=== PATIENT | female | born 1980 | race Caucasian/White ===

== ENCOUNTER 2019-05-28 12:08 | Outpatient (CLI) | payer OTHER, SELFPAY ==
--- NOTE | ~2019-05-28 | US_ITS ---
EXAMINATION: US venous doppler LE RT EXAM DATE: 05/28/2019 12:55 INDICATION: Right maxillary pain. TECHNIQUE: Multiple grayscale, color flow and Doppler images of the right lower extremity deep venous system were obtained and reviewed. There is no prior study for comparison. FINDINGS: The right common femoral, femoral and profunda veins demonstrate normal color flow, respira tory variation, augmentation and compressibility. Compressibility, color flow confirmed within the r ight popliteal, posterior tibial, peroneal, and greater saphenous veins. IMPRESSION: 1. No right lower extremity deep venous thrombosis. Reviewed, dictated and finalized at location B. [employer] OPERATOR
== END 2019-05-28 12:09 | disposition home or self-care (01) ==
PROVIDERS: PCP Family Medicine; Visit Provider Obstetrics & Gynecology
DX: M79.661 Pain in right lower leg (principal)
CPT/HCPCS: 93971

== ENCOUNTER 2020-10-06 09:49 | Emergency (ER) | payer OTHER, SELFPAY ==
[2020-10-06 09:57] VITALS: BP 138/78; PULSE 80; RESP 16; TEMP 35.8; O2SAT 100
--- NOTE | 2020-10-06 10:06 | ED.GENADULT ---
HPI - General Adult General Chief complaint: Urogenital-Female Stated complaint: uti Time Seen by Provider: 10/06/20 10:00 Source: patient and RN notes reviewed Mode of arrival: ambulatory Limitations: no limitations History of Present Illness HPI narrative: 40-year-old female presents with urinary complaints for the past 4 days. ?Angeline reports increasing symptoms throughout the past 4 days. ?Dysuria consists of burning, frequency, and urgency.? Increase water intake and cranberry juice without relief. ?Denies fever. ?No significant pelvic pain. ?No vaginal discharge.? No concerns for STDs.? Exacerbating factors urinating.? Denies douching.? Denies hematuria or vaginal bleeding.? LMP 09/27/2020 ended on?10/02/2020.? No flank pain.? Denies nausea, vomiting, and abdominal pain.? Tolerating liquids well. Remains active. ?The patient reports she was diagnosed with COVID-19 in February,?2019. ?The patient reports she is not waiting for the results of a COVID-19 lab test. ?The patient reports she does not have chills, weakness, or fatigue. ?The patient reports she does not have a new or worsening cough or shortness of breath.? Denies chest pain. The patient reports she does not have any rhinorrhea, congestion, sore throat, loss of taste or smell, and diarrhea.? Denies recent traveling. ?Denies concerns for COVID-19 or exposures being home with limited outdoor exposure. ?At this time, the patient is not suspected of having COVID-19. Some parts of this dictation were generated by voice recognition software and may contain typographical and/or grammatical inaccuracies. Related Data Allergies Allergy/AdvReac Type Severity Reaction Status Date / Time No Known Allergies Allergy Unverified 10/06/20 09:54 Review of Systems Review of Systems: Narrative: CONSTITUTIONAL: Denies fever, chills, sweats. EYES: Denies visual changes, redness, discharge. ENT: Denies rhinorrhea, congestion, sore throat, otalgia. CARDIOVASCULAR: Denies chest pain, palpitations, edema. RESPIRATORY: Denies dyspnea, wheezing, cough. GASTROINTESTINAL: Denies abdominal pain, nausea, vomiting, diarrhea. GENITOURINARY: Complains of dysuria (burning, frequency, and urgency). Denies hematuria, abnormal discharge. SKIN: Denies rash or itching. MUSCULOSKELETAL: Denies acute back pain, joint pain, or myalgia. NEUROLOGIC: Denies numbness or focal weakness. PSYCHIATRIC: Denies anxiety or depression. All systems reviewed & are unremarkable except as noted in HPI and below. [facility] Past Medical History Medical History (Updated 10/07/20 @ 00:00 by Taiwo Venegas) delivery delivered Mother currently breast-feeding Surgical History Surgical History Previous section Family History Family History (Updated 10/06/20 @ 11:02 by BETTINA Finch) Father Family history of cardiovascular disease Hypertension Mother Hypertension Grandparent Diabetes mellitus Social History Social History (Updated 10/06/20 @ 11:03 by BETTINA Finch) Smoking status: Never smoker Tobacco type: cigarettes Second hand tobacco smoke exposure: No Alcohol intake: never Substance use: never Living arrangements: with family Occupation/Education: unemployed Gender identity (if verbalized by the patient): Female Sexual Orientation (if Verbalized by the Patient): Straight or Heterosexual Spiritual care concerns: No Comments At time of signature, agree with the nurse past medical, surgical, social, and family history.? There is no relevant family history pertinent to the presenting complaint. Exam Narrative: Exam Narrative: GENERAL: This is a well-nourished, well-developed patient, in no apparent distress.? Talks in full sentences and ambulates with steady gait without dyspnea. HEAD: Normocephalic, atraumatic. EYES: PERRL. Sclera clear/white. Vision is grossly intact. CARDIOVASCULAR: Regular rate
== END 2020-10-06 10:19 | disposition home or self-care (01) ==
PROVIDERS: Emergency Provider Nurse Practitioner Family
DX: R30.0 Dysuria (principal)
CPT/HCPCS: 81003; 99213; G0463

== ENCOUNTER 2020-12-16 08:44 | Emergency (ER) | payer OTHER, SELFPAY ==
[2020-12-16 08:55] VITALS: BP 108/62; PULSE 72; RESP 16; TEMP 36.6; O2SAT 100
--- NOTE | 2020-12-16 09:02 | ED.GENADULT ---
HPI - General Adult General Chief complaint: Urogenital-Female Stated complaint: uti Time Seen by Provider: 12/16/20 09:03 Source: patient and RN notes reviewed Mode of arrival: ambulatory Limitations: no limitations History of Present Illness HPI narrative: 40-year-old female presents with urinary complaints for the past 1.5 weeks. Angeline reports increasing frequency and pressure with urination over the last 3-4 days. Increased water intake and cranberry juice without relief. Dysuria consists of pain, frequency, and urgency. Denies fever. ?No significant pelvic pain. ?No vaginal discharge.? No concerns for STDs. ?Exacerbating factors urinating.? Denies hematuria or vaginal bleeding. No flank pain. ?Denies nausea, vomiting, and abdominal pain.? Tolerating liquids well.? Remains active. ?The patient reports she was diagnosed with COVID-19 in February 2020. The patient reports she is not waiting for the results of a COVID-19 lab test. ?The patient reports he does not have chills, weakness, or fatigue. ?The patient reports he does not have a new or worsening cough or shortness of breath. ?Denies chest pain. ?The patient reports he does not have any rhinorrhea, congestion, loss of taste or smell, sore throat, and diarrhea. ?Denies recent traveling. Denies concerns for COVID-19 or exposures. ?At this time, the patient is not suspected of having COVID-19. ? Some parts of this dictation were generated by voice recognition software and may contain typographical and/or grammatical inaccuracies. Related Data Allergies Allergy/AdvReac Type Severity Reaction Status Date / Time No Known Allergies Allergy Unverified 12/16/20 08:49 Review of Systems Review of Systems: CONSTITUTIONAL: Denies fever, chills, sweats. EYES: Denies visual changes, redness, discharge. ENT: Denies rhinorrhea, congestion, sore throat, otalgia. CARDIOVASCULAR: Denies chest pain, palpitations, edema. RESPIRATORY: Denies dyspnea, wheezing, cough. GASTROINTESTINAL: Denies abdominal pain, nausea, vomiting, diarrhea. GENITOURINARY: Complains of dysuria (pain, frequency, and urgency). Denies hematuria, abnormal discharge. SKIN: Denies rash or itching. MUSCULOSKELETAL: Denies acute back pain, joint pain, or myalgia. NEUROLOGIC: Denies numbness or focal weakness. PSYCHIATRIC: Denies anxiety or depression. All systems reviewed & are unremarkable except as noted in HPI and below. [facility] Past Medical History Medical History (Updated 12/16/20 @ 10:32 by BETTINA Finch) delivery delivered COVID-19 02/2020 Dizziness Heartburn Mother currently breast-feeding Palpitations Scarlet fever Surgical History Surgical History Previous section Family History Family History Father Family history of cardiovascular disease Hypertension Diabetes mellitus Mother Hypertension Disorder of thyroid Grandparent Diabetes mellitus Social History Social History Smoking status: Never smoker Tobacco type: cigarettes Second hand tobacco smoke exposure: No Alcohol intake: never Substance use: never Gender identity (if verbalized by the patient): Female Spiritual care concerns: No Comments At time of signature, agree with the nurse past medical, surgical, social, and family history.? There is no relevant family history pertinent to the presenting complaint. Exam Narrative: GENERAL: This is a well-nourished, well-developed patient, in no apparent distress.? Talks in full sentences and ambulates with steady gait without dyspnea. HEAD: Normocephalic, atraumatic. EYES: PERRL. Sclera clear/white. Vision is grossly intact. CARDIOVASCULAR: Regular rate and rhythm without murmurs, gallops, or rubs. RESPIRATORY: Clear to auscultation. Breath sounds equal bilaterally. No whee
== END 2020-12-16 09:27 | disposition home or self-care (01) ==
PROVIDERS: Emergency Provider Nurse Practitioner Family; PCP Internal Medicine
DX: R30.0 Dysuria (principal); R12 Heartburn; Z86.16 Personal history of COVID-19
CPT/HCPCS: 81003; 87077; 87086; 87088; 87186; 99213; G0463

== ENCOUNTER 2022-07-28 02:11 | Emergency (ER) | payer OTHER, SELFPAY ==
[2022-07-28] VITALS (8 sets, daily range): BP systolic 118–166; BP diastolic 74–89; PULSE 79–117; RESP 15–20; TEMP 36.1–36.4; O2SAT 98–100
--- NOTE | ~2022-07-28 | CT_ITS ---
EXAMINATION: CTA chest PE protocol DATE: 07/28/2022 07:47 INDICATION: Intermittent chest pain radiating down the left arm. TECHNIQUE: Computed tomography angiography (CTA) of the chest was performed with 100 mL Omnipaque-350 intravenous contrast timed to evaluate the pulmonary arteries. Coronal maximum intensity projection 3D-reconstructions were created by the technologist. Automated exposure control and iterative reconst ruction technique were employed. The dose-length product was 202.34 mGy-cm. COMPARISON: Chest CT 02/08/2007 FINDINGS: There is no pneumonia or pleural effusion. The heart size is normal. No pericardial effusio n. There is no pulmonary embolus. There is mild thoracic spondylosis. IMPRESSION: 1. No pulmonary embolus. Sensitivity is mildly decreased by motion artifact. Reviewed, dictated and finalized at location A.
--- NOTE | ~2022-07-28 | XR_ITS ---
EXAMINATION: XR chest 2V DATE: 07/28/2022 03:27 INDICATION: Chest pain. TECHNIQUE: Frontal and lateral views of the chest were obtained. COMPARISON: Chest 2 views 02/08/2007 FINDINGS: The chest demonstrates clear lungs without pneumonia, pleural effusion, or pneumothorax. Th e heart size is normal. There is mild pectus excavatum. IMPRESSION: 1. No acute cardiopulmonary disease. Reviewed, dictated and finalized at location A.
--- NOTE | 2022-07-28 02:14 | ECG_ITS ---
Measurements Intervals [place] Rate: 112 P: 78 SC: 129 QRS: 78 QRSD: 88 T: 34 QT: 320 QTc: 439 Interpretive Statements SINUS TACHYCARDIA NONSPECIFIC ST SEGMENT ABNORMALITY NO PREVIOUS ECG AVAILABLE FOR COMPARISON Electronically Signed On 07-28-2022 12:58:57 CDT by Gregory Hickman M.D.
[2022-07-28 02:30] LABS: Basophils Percent Auto 0.3 % (0.2-1.2); Eosinophils Absolute Auto 0.1 K/mm3 (0-0.3); Eosinophils Percent Auto 0.5 % (0-4.4); Hematocrit 35.6 % (37.0-47.0); Hemoglobin 10.8 g/dL (12.0-15.0); Immature Granulocyte Absolute 0.04 K/mm3 (0.00-0.031); Immature Granulocyte Percent A 0.3 % (0-0.5); Lymphocytes Percent Auto 21.9 % (18.3-44.2); Mean Corpuscular HGB Conc 30.3 g/dl (32-36); Mean Corpuscular Hemoglobin 23.6 pg (26-34); Mean Corpuscular Volume 77.7 fl (80-100); Mean Platelet Volume 11.5 fl (7.4-10.4); Monocytes Absolute Auto 0.8 K/mm3 (0.1-0.6); Monocytes Percent Auto 7.3 % (2.6-8.5); Neutrophils Percent Auto 69.7 % (45.5-73.1); Platelet Count Result 275 k/mm3 (150-375); Red Blood Count 4.58 M/mm3 (4.2-5.4); Red Cell Distribution Width 16.3 % (11.5-14.5); White Blood Count 11.4 K/mm3 (4.5-10.0)
[2022-07-28 02:56] LABS: INR 1.1; Partial Thromboplastin Time 29.1 SECONDS (22.3-36.8); Prothrombin Time 13.5 Seconds (11.1-14.7)
[2022-07-28 03:08] LABS: Alanine Aminotransferase 16 U/L (6-35); Alkaline Phosphatase 57 U/L (38-126); Anion Gap 11 mmol/L (8-16); Aspartate Amino Transferase 23 U/L (14-36); Blood Urea Nitrogen 12 mg/dL (7-17); Carbon Dioxide 19 mmol/L (22-30); Chloride 108 mmol/L (98-107); Estimated CRCL calculation 102 ml/min; Estimated Glomerular Filt Rate > 60; Glucose 117 mg/dL (65-110); Lipase 111 U/L (23-300); Potassium 3.4 mmol/L (3.4-5.0); Sodium 138 mmol/L (137-145); Troponin I < 0.012 ng/mL (0.000-0.034)
[2022-07-28 05:33] LABS: Troponin I < 0.012 ng/mL (0.000-0.034)
--- NOTE | 2022-07-28 05:42 | ECG_ITS ---
Measurements Intervals [place] Rate: 106 P: 82 IA: 126 QRS: 75 QRSD: 88 T: 48 QT: 315 QTc: 419 Interpretive Statements SINUS TACHYCARDIA NONSPECIFIC ST SEGMENT ABNORMALITY COMPARED TO ECG 07/28/2022 02:19:21 NO SIGNIFICANT CHANGES Electronically Signed On 07-28-2022 12:59:58 CDT by Gregory Hickman M.D.
--- NOTE | 2022-07-28 06:29 | ED.GENADULT ---
HPI - General Adult General Chief complaint: Chest Pain Stated complaint: chest pain, arm pain Time Seen by Provider: 07/28/22 05:42 History of Present Illness HPI narrative: Patient was initially evaluated in triage 41-year-old female presented the emergency department for evaluation of some intermittent chest pain throughout the day. Patient states that throughout the day she has had intermittent short lasting chest pain. Patient states this occurs randomly and is not with exertion. Patient states the pain is short lasting and then resolves. Patient denies any prior history of coronary artery disease. Patient reports he did have some issues with sinus tachycardia when she was younger but has not had any issues since, patient used to be on a beta-dhara but is no longer. Patient states her normal resting heart rate is in the 50s to 70s. Patient felt that her heart rate was not elevated until she was getting the EKG. Patient is clearly nervous when being evaluated and patient does admit to this. Patient denies any history of PE or DVT. Patient denies any associated shortness of breath. While in the emergency department patient denies any current chest pain. Related Data Home Medications Medication Instructions Recorded Confirmed No Home Medications 10/24/21 Allergies Allergy/AdvReac Type Severity Reaction Status Date / Time No Known Allergies Allergy Verified 07/28/22 07:27 Review of Systems Review of Systems: All systems reviewed & are unremarkable except as noted in HPI and below PMFSH Past Medical History Medical History delivery delivered COVID-19 02/2020 Dizziness Heartburn Mother currently breast-feeding Palpitations Scarlet fever Surgical History Surgical History Previous section Family History Family History Father Family history of cardiovascular disease Hypertension Diabetes mellitus Mother Hypertension Disorder of thyroid Grandparent Diabetes mellitus Social History Social History Smoking status: Never smoker Tobacco type: cigarettes Second hand tobacco smoke exposure: No Alcohol intake: never Substance use: never Living arrangements: with family Occupation/Education: unemployed Gender identity (if verbalized by the patient): Female Sexual Orientation (if Verbalized by the Patient): Straight or Heterosexual Spiritual care concerns: No Exam Narrative: APPEARANCE: Well appearing, no pain, no distress, well-nourished. HEAD: normocephalic, atraumatic. EYES: PERRLA/EOMI, conjunctivae clear. NOSE: Normal no drainage NECK: Supple. No adenopathy, no masses. RESPIRATORY: Airway patent, respirations nonlabored. Clear to auscultation bilaterally, no rales, rhonchi, wheezing. CARDIOVASCULAR: Regular rate and rhythm without murmurs rubs or gallops. ABDOMINAL: Soft, nontender, nondistended, normal bowel sounds MUSCULOSKELETAL: Moves all extremities. Strength/ROM intact, No edema, No calf tenderness. NEURO: Alert. Cranial nerves II through XII intact. Grossly intact SKIN: Warm, dry. Normal Color Course Course Emergency Course: When patient is at rest her heart rate is in the 80s. When patient was getting her EKG she was nervous and her EKG shows a sinus tachycardia. At time of EKGs patient was denying any active pain. Patient is afebrile with a leukocytosis of 11.4. Patient's serial troponins were negative. Patient's CMP is within normal limits. Patient's chest x-ray shows no acute cardiopulmonary abnormality. EKGs were repeated twice because she does have some moderate ST depressions but no ST elevations and no evidence of acute STEMI. EKGs were unchanged and patient was pain-free at time of EKGs. D-dimer was ordered t
[2022-07-28 06:42] LABS: D Dimer 0.67 ug/mL (<0.48)
[2022-07-28] MEDS: SODIUM CHLORIDE 0.9% IV 1,000 ML 999 ML IV CONT (07:18)
== END 2022-07-28 08:16 | disposition home or self-care (01) ==
PROVIDERS: Emergency Provider Emergency Medicine; PCP Internal Medicine
DX: R07.89 Other chest pain (principal); Z86.16 Personal history of COVID-19; R00.0 Tachycardia, unspecified
CPT/HCPCS: 36415; 71046; 71275; 80053; 83690; 84484; 85025; 85380; 85610; 85730; 93005; 99284; J7030; Q9967

== ENCOUNTER 2022-08-06 17:27 | Emergency (ER) | payer OTHER, SELFPAY ==
[2022-08-06 17:33] VITALS: BP 135/68; PULSE 70; RESP 16; TEMP 37.4; O2SAT 99
[2022-08-06 17:35] VITALS: BP 135/68; PULSE 70; RESP 16; TEMP 37.4; O2SAT 99
--- NOTE | 2022-08-06 17:45 | ED.GENADULT ---
HPI - General Adult General Chief complaint: Upper Respiratory Infection Stated complaint: Sinus Source: patient Mode of arrival: ambulatory Limitations: no limitations History of Present Illness HPI narrative: Patient presents for evaluation of sinus symptoms. She indicates approximately 9 days ago she developed which she describes as a cold with sinus congestion clear rhinorrhea. Symptoms started to improve however she developed recurrence and worsening of her symptoms over the last few days. She now reports mucopurulent discharge from her nares. She denies any fever, chills, nausea, vomiting. She reports cough but denies any shortness of breath. No recent sick contacts to her knowledge. She tried taking some [id number] agents without considerable improvement in her symptoms or after. She does not smoke. She has an appt with her primary two days from now. Related Data Allergies Allergy/AdvReac Type Severity Reaction Status Date / Time No Known Allergies Allergy Verified 08/06/22 17:34 Review of Systems Review of Systems: CONSTITUTIONAL: Denies fever, chills, or sweats. EYES: Denies visual changes, redness, or discharge. ENT: Reports sinus congestion mucopurulent discharge from the nares. Reports scratchy throat CARDIOVASCULAR: Denies chest pain, palpitations, or edema. RESPIRATORY: Denies cough or dyspnea. GASTROINTESTINAL: Denies abdominal pain, nausea, vomiting, or diarrhea. GENITOURINARY: Denies dysuria or hematuria. SKIN: Denies rash or itching. MUSCULOSKELETAL: Denies back pain, joint pain, or myalgia. NEUROLOGIC: Denies headache, numbness, dizziness, or weakness. PSYCHIATRIC: Denies anxiety or depression. [facility] Past Medical History Medical History delivery delivered COVID-19 02/2020 Dizziness Heartburn Mother currently breast-feeding Palpitations Scarlet fever Surgical History Surgical History Previous section Family History Family History Father Family history of cardiovascular disease Hypertension Diabetes mellitus Mother Hypertension Disorder of thyroid Grandparent Diabetes mellitus Social History Social History Smoking status: Never smoker Tobacco type: cigarettes Second hand tobacco smoke exposure: No Alcohol intake: never Substance use: never Living arrangements: with family Occupation/Education: unemployed Gender identity (if verbalized by the patient): Female Sexual Orientation (if Verbalized by the Patient): Straight or Heterosexual Spiritual care concerns: No Exam Narrative: GENERAL: Well-appearing, well-nourished, and in no acute distress. HEAD: Normocephalic, atraumatic. EYES: PERRLA and EOMI. ENT: there is a mucopurulent discharge noted in the bilateral nares. Mucous membranes moist. Oropharynx without tonsillar hypertrophy exudate or other lesions. Bilateral TMs pearly kruger nonbulging. Bilateral maxillary and frontal sinus tenderness. NECK: Supple. No adenopathy or masses. No carotid bruits or JVD CHEST: Clear to auscultation. No respiratory distress. No wheezes rales or rhonchi HEART: Regular rate and rhythm. No murmur heard. Normal peripheral pulses. ABDOMEN: Soft, nontender, nondistended, normal active bowel sounds. EXTREMITIES: Normal range of motion. No edema. SKIN: Warm, dry, no rash. NEURO: No focal deficits. Alert and oriented x3. PSYCH: Normal mood and affect. Course Course Emergency Course: this is a 41-year-old female who presented for evaluation of sinus symptoms. She meets criteria for acute bacterial rhinosinusitis based upon nature of discharge and recurrence of symptoms after initial improvement. will discharge with Augmentin. Follow up with deena
== END 2022-08-06 17:47 | disposition home or self-care (01) ==
PROVIDERS: Emergency Provider Nurse Practitioner; PCP Internal Medicine
DX: J32.9 Chronic sinusitis, unspecified (principal); Z86.16 Personal history of COVID-19
CPT/HCPCS: 99213; G0463

== ENCOUNTER 2023-05-18 15:55 | Emergency (ER) | payer OTHER, SELFPAY ==
--- NOTE | ~2023-05-18 | XR_ITS ---
EXAMINATION: XR chest 2V Exam Date/Time: 05/18/2023 16:23 WASH AND GREASER HISTORY: CHEST TIGHTNESS Comparison: 07/28/2022. RESULT: Lines, tubes, and devices: None. Lungs and pleura: Clear. Cardiomediastinal silhouette: Stable. Other: No acute osseous or upper abdominal finding. IMPRESSION: No acute cardiopulmonary process. Reviewed, dictated and finalized at location K. AND GREASER
--- NOTE | 2023-05-18 15:58 | ECG_ITS ---
Measurements Intervals [place] Rate: 102 P: -12 TN: 122 QRS: -2 QRSD: 90 T: 11 QT: 342 QTc: 447 Interpretive Statements SINUS TACHYCARDIA CONSIDER INFERIOR INFARCT, AGE INDETERMINATE BORDERLINE ST ABNORMALITY- ANTEROLAT/HIGH LAT LEADS ABNORMAL ECG COMPARED TO ECG 07/28/2022 05:46:58 NO SIGNIFICANT CHANGES Electronically Signed On 05-18-2023 21:18:15 ASSOCIATE DIRECTOR OF SALES by Leobardo Piña D.O.
[2023-05-18 15:59] VITALS: BP 137/87; PULSE 113; RESP 20; TEMP 36.6; O2SAT 100
[2023-05-18 16:04] VITALS: PULSE 118
[2023-05-18 16:05] VITALS: BP 137/87; PULSE 109; RESP 14; O2SAT 100
[2023-05-18] MEDS: ASPIRIN 81 MG CHEWABLE TABLET 324 MG PO (16:10)
[2023-05-18 16:18] LABS: Basophils Percent Auto 0.3 % (0.2-1.2); Eosinophils Absolute Auto 0.1 K/mm3 (0-0.3); Eosinophils Percent Auto 0.5 % (0-4.4); Hematocrit 32.7 % (37.0-47.0); Hemoglobin 9.4 g/dL (12.0-15.0); Immature Granulocyte Absolute 0.03 K/mm3 (0.00-0.031); Immature Granulocyte Percent A 0.3 % (0-0.5); Lymphocytes Absolute Auto 2.05 K/mm3 (0.9-3.2); Mean Corpuscular HGB Conc 28.7 g/dl (32-36); Mean Corpuscular Hemoglobin 21.7 pg (26-34); Mean Corpuscular Volume 75.5 fl (80-100); Mean Platelet Volume 10.9 fl (7.4-10.4); Monocytes Absolute Auto 0.7 K/mm3 (0.1-0.6); Monocytes Percent Auto 6.8 % (2.6-8.5); Neutrophils Absolute Auto 7.4 K/mm3 (1.3-6.7); Neutrophils Percent Auto 72.1 % (45.5-73.1); Platelet Count Result 285 k/mm3 (150-375); Red Blood Count 4.33 M/mm3 (4.2-5.4); Red Cell Distribution Width 16.5 % (11.5-14.5); White Blood Count 10.3 K/mm3 (4.5-10.0)
[2023-05-18 16:27] LABS: Partial Thromboplastin Time 28.8 SECONDS (22.3-36.8); Prothrombin Time 13.5 Seconds (11.1-14.7)
[2023-05-18 16:36] LABS: Alanine Aminotransferase 20 U/L (6-35); Albumin Level 4.7 g/dL (3.5-5.1); Alkaline Phosphatase 50 U/L (38-126); Anion Gap 14 mmol/L (8-16); Aspartate Amino Transferase 29 U/L (14-36); Blood Urea Nitrogen 6 mg/dL (7-17); Calcium 9.3 mg/dL (8.4-10.2); Carbon Dioxide 21 mmol/L (22-30); Chloride 105 mmol/L (98-107); Estimated CRCL calculation 75 ml/min; Estimated Glomerular Filt Rate > 60; Glucose 104 mg/dL (65-110); Lipase 77 U/L (23-300); Potassium 3.3 mmol/L (3.4-5.0); Sodium 140 mmol/L (137-145)
[2023-05-18 16:52] VITALS: BP 144/80; PULSE 74; RESP 14; O2SAT 100
[2023-05-18] MEDS: POTASSIUM CHLORIDE 20 MEQ ER TABLET 40 MEQ PO (16:52)
[2023-05-18 17:01] LABS: Hypochromasia 1+ (NORMAL); Platelet Estimate Adequate (Adequate)
[2023-05-18 17:02] LABS: Anisocytosis 1+ (NORMAL); Microcytosis 1+ (NORMAL); Schistocytes None Seen (NORMAL)
[2023-05-18 17:07] LABS: Troponin I < 0.012 ng/mL (0.000-0.034)
[2023-05-18] MEDS: LORazepam INJ (*CRX) 2 MG/ML VIAL 0.5 MG IV PUSH (17:12)
[2023-05-18] MEDS: AMOXICILLIN 500 MG CAPSULE PO (17:13)
[2023-05-18 17:24] VITALS: BP 137/73; PULSE 81; RESP 18; O2SAT 100
--- NOTE | 2023-05-18 18:20 | ED.CHESTPAIN ---
HPI - Chest Pain General Chief Complaint: Chest Pain Stated Complaint: CHEST TIGHTNESS Time Seen by Provider: 05/18/23 16:01 History of Present Illness HPI narrative: patient presenting with sensation of chest tightness since yesterday, she has had a similar episode in the past. no nausea or vomiting, no shortness of breath, does have 5 children at home and tooth infection and feels stressed. No focal numbness or weakness. Had considered the following up with her primary care doctor for anxiety in the past but has not brought this up to him. Related Data Allergies Allergy/AdvReac Type Severity Reaction Status Date / Time No Known Allergies Allergy Verified 05/18/23 16:07 Review of Systems Review of Systems: CONST: No fever. HEENT: No sore throat C/V: chest tightness RESP: No cough GI: No abdominal pain : No dysuria. M/S: No joint pain. SKIN: No rash. NEURO: [No headache or focal numbness or weakness] PSYCH: [No depression] [facility] Past Medical History Medical History delivery delivered COVID-19 02/2020 Dizziness Heartburn Mother currently breast-feeding Palpitations Scarlet fever Surgical History Surgical History Previous section Family History Family History Father Family history of cardiovascular disease Hypertension Diabetes mellitus Mother Hypertension Disorder of thyroid Grandparent Diabetes mellitus Social History Social History Smoking status: Never smoker Tobacco type: cigarettes Second hand tobacco smoke exposure: No Alcohol intake: never Substance use: never Living arrangements: with family Occupation/Education: unemployed Gender identity (if verbalized by the patient): Female Sexual Orientation (if Verbalized by the Patient): Straight or Heterosexual Spiritual care concerns: No Exam Narrative: EXAMINATION OF ORGAN SYSTEMS/BODY AREAS: Constitutional: Vital signs per nursing GENERAL: jittery, shaking her leg HEAD: Normal with no signs of head trauma. EYES: EOMI, conjunctiva normal ENT: Hearing grossly intact LUNGS: Nonlabored breathing. HEART: [Regular rate and rhythm] ABD: [Soft], [nontender to palpation] EXT: Normal range of motion, no lower extremity swelling or tenderness SKIN: [No rashes or lesions.] NEURO: [Alert and oriented x 3. No gross focal sensory or strength deficits.] PSYCH: slightly anxious affect Course Vital Signs Vital signs: Vital Signs Temperature 97.9 F 05/18/23 15:59 Pulse Rate 113 H 05/18/23 15:59 Respiratory Rate 20 05/18/23 15:59 Blood Pressure 137/87 05/18/23 15:59 Pulse Oximetry 100 05/18/23 15:59 Oxygen Delivery Room Air 05/18/23 15:59 Temperature 97.9 F 05/18/23 15:59 Pulse Rate 81 05/18/23 17:24 Respiratory Rate 18 05/18/23 17:24 Blood Pressure 137/73 05/18/23 17:24 Pulse Oximetry 100 05/18/23 17:24 Oxygen Delivery Room Air 05/18/23 15:59 MDM - Chest Pain MDM Narrative Medical decision making narrative: Patient presenting here with chest tightness. On exam patient is [ initially tachycardic with an anxious affect, she is jittery and shaky her leg and her has commented that she has seemed anxious in the past and always seems to be rocking]. I will obtain EKG and chest xray to rule out arrhythmia/ischemia, pneumothorax, or other cause of chest discomfort/shortness of breath. I did consider PE however she has no DVT symptoms and has had a recent negative CT-PE from a similar episode months ago. Also considered thyroid however BP and temp normal so I doubt any thyrotoxicosis. Chest x-ray on my independent interpretation does not show any acute abnormality, no pneumothorax or consolidation. EKG -
== END 2023-05-18 17:26 | disposition home or self-care (01) ==
PROVIDERS: Emergency Provider Emergency Medicine
DX: R07.89 Other chest pain (principal); K08.89 Other specified disorders of teeth and supporting structures; Z86.16 Personal history of COVID-19; R00.0 Tachycardia, unspecified; R94.31 Abnormal electrocardiogram [ECG] [EKG]
CPT/HCPCS: 36415; 71046; 80053; 83690; 84484; 85025; 85610; 85730; 93005; 96374; 99284; A9270; J2060

== ENCOUNTER 2023-09-23 09:58 | Outpatient (CLI) | payer OTHER, SELFPAY ==
--- NOTE | ~2023-09-23 | MM_ITS ---
EXAMINATION: MM screening ruperto BI w gigi HISTORY: Screening TECHNIQUE: Craniocaudal and mediolateral oblique 3-D tomosynthesis images were obtained and synthetic 2-D images were generated. CAD analysis was submitted and interpreted. COMPARISON: No prior mammogram is available for comparison at this institution. BREAST PARENCHYMAL COMPOSITION: There are scattered areas of fibroglandular density. FINDINGS: There is no evidence of suspicious mass, calcification, or architectural distortion to sugg est malignancy in either breast. There has been no suspicious interval change. IMPRESSION: 1. No mammographic evidence of malignancy. 2. Recommend routine screening mammography in one year. BI-RADS Category 1: Negative Reviewed, dictated and finalized at location B.
== END 2023-09-23 09:59 | disposition home or self-care (01) ==
PROVIDERS: PCP Nurse Practitioner Family; Visit Provider Obstetrics & Gynecology
DX: Z12.31 Encounter for screening mammogram for malignant neoplasm of breast (principal)
CPT/HCPCS: 77063; 77067

== ENCOUNTER 2023-11-26 13:45 | Outpatient (CLI) | payer OTHER, SELFPAY ==
[2023-11-26 14:01] LABS: Basophils Percent Auto 0.6 % (0.2-1.2); Eosinophils Absolute Auto 0.1 K/mm3 (0-0.3); Eosinophils Percent Auto 1.9 % (0-4.4); Hematocrit 32.3 % (37.0-47.0); Hemoglobin 9.7 g/dL (12.0-15.0); Immature Granulocyte Absolute 0.01 K/mm3 (0.00-0.031); Immature Granulocyte Percent A 0.2 % (0-0.5); Lymphocytes Absolute Auto 1.58 K/mm3 (0.9-3.2); Lymphocytes Percent Auto 24.8 % (18.3-44.2); Mean Corpuscular Hemoglobin 23.2 pg (26-34); Mean Corpuscular Volume 77.3 fl (80-100); Mean Platelet Volume 10.4 fl (7.4-10.4); Monocytes Absolute Auto 0.6 K/mm3 (0.1-0.6); Monocytes Percent Auto 9.9 % (2.6-8.5); Neutrophils Percent Auto 62.6 % (45.5-73.1); Platelet Count Result 239 k/mm3 (150-375); Red Blood Count 4.18 M/mm3 (4.2-5.4); White Blood Count 6.4 K/mm3 (4.5-10.0)
[2023-11-26 14:07] LABS: Platelet Estimate Adequate (Adequate); Schistocytes None Seen
[2023-11-26 14:08] LABS: Anisocytosis 1+; Microcytosis 1+ (NORMAL)
[2023-11-26 16:49] LABS: Iron 25 ug/dL (37-170)
[2023-11-26 16:53] LABS: Alanine Aminotransferase 14 U/L (6-35); Albumin Level 4.8 g/dL (3.5-5.1); Alkaline Phosphatase 45 U/L (38-126); Anion Gap 13 mmol/L (4-12); Aspartate Amino Transferase 21 U/L (14-36); Bilirubin,Total 0.8 mg/dL (0.2-1.3); Blood Urea Nitrogen 11 mg/dL (7-17); Calcium 9.6 mg/dL (8.4-10.2); Carbon Dioxide 21 mmol/L (22-30); Chloride 104 mmol/L (98-107); Estimated Glomerular Filt Rate > 60; Glucose 87 mg/dL (65-110); Lactate Dehydrogenase 153 U/L (120-246); Potassium 4.1 mmol/L (3.4-5.0); Sodium 138 mmol/L (137-145)
[2023-11-26 16:58] LABS: Percent Iron Saturation 6 % (20-50)
[2023-11-26 17:25] LABS: Ferritin 4.84 ng/mL (6.24-137)
[2023-11-26 17:59] LABS: Folic Acid 16.1 ng/mL (2.76->20)
[2023-11-30 09:24] LABS: Methylmalonic Acid 216 nmol/L (55-335)
[2023-12-02 10:39] LABS: Soluble Transferrin Receptor 4.84 mg/L (0.76-1.76)
== END 2023-11-26 13:46 | disposition home or self-care (01) ==
LOC: ANHLAB 13:46
PROVIDERS: Nurse Practitioner Family; PCP Nurse Practitioner Family; Visit Provider Internal Medicine Hematology & Oncology
DX: D50.0 Iron deficiency anemia secondary to blood loss (chronic) (principal)
CPT/HCPCS: 36415; 80053; 82607; 82728; 82746; 83540; 83550; 83615; 83921; 84238; 85025

== ENCOUNTER 2024-03-09 13:38 | Outpatient (CLI) | payer OTHER, SELFPAY ==
--- NOTE | 2024-03-09 13:46 | ECHO_ITS ---
Patient Info Name: Angeline Reardno Age: 43 years : 1980 Gender: Female Ht: 60 in Wt: 135 lbs BSA: 1.63 m2 HR: 68 bpm BP: 106 / 69 mmHg Heart Rhythm: Sinus Rhythm Technical Quality: Good Exam Date: 03/09/2024 1:48 PM Exam Location: Echo Lab Patient Status: Outpatient Admit Date: 03/09/2024 Staff Ordering Physician: Leobardo Piña DO Almond Huller: Елена Oneill RDCS Attending Provider: Leobardo Piña DO Referring Physician: Wang FARRELL; Exam Type: CA echo doppler color flow Study Info Indications R06.09 - Other forms of dyspnea Complete two-dimensional, color flow and Doppler transthoracic echocardiogram is performed. Strain analysis performed. Summary 1. Complete two-dimensional, color flow and Doppler transthoracic echocardiogram is performed. 2. Left ventricular chamber dimension is normal. 3. Left ventricular systolic function is normal, estimated at 60-65%. 4. The left ventricular diastolic function is normal. 5. E/e' 9 is minimally elevated. 6. Global longitudinal strain is normal at -25.8%. 7. There is trace mitral valve regurgitation. 8. There is trace tricuspid valve regurgitation. 9. No pulmonary hypertension, estimated pulmonary arterial systolic pressure is 31 mmHg. Left Ventricle E/e' 9 is minimally elevated. Global longitudinal strain is normal at -25.8%. Left ventricular chamber dimension is normal. Left ventricular systolic function is normal, estimated at 60-65%. The left ventricular diastolic function is normal. Right Ventricle Right ventricular systolic function is normal and with normal TAPSE 2.4 cm. Right ventricular chamber dimension is normal. Left Atria Left atrial chamber dimension is normal. Right Atria Right atrial chamber dimension is normal. Aortic Valve The aortic valve is trileaflet. There is no aortic valve stenosis. There is no aortic valve regurgitation. Pulmonic Valve There is no pulmonic regurgitation. Mitral Valve There is no mitral valve stenosis. There is trace mitral valve regurgitation. Tricuspid Valve There is trace tricuspid valve regurgitation. No pulmonary hypertension, estimated pulmonary arterial systolic pressure is 31 mmHg. Pericardium/Pleural There is no pericardial effusion. Inferior Vena Cava Normal inferior vena cava with >50% collapse upon inspiration consistent with normal right atrial pressure, 5 mmHg. Aorta The aortic root size at the sinus of Valsalva is normal. Left Ventricular Outflow Tract Name Value Normal LVOT 2D LVOT Diameter 2.0 cm LVOT Doppler LVOT Peak Gradient 8 mmHg LVOT Mean Gradient 3 mmHg LVOT VTI 23 cm LVOT VTI/AV VTI Ratio 0.7 LVOT Stroke Volume 68 ml LVOT CO 4.0 l/min LVOT CI 2.5 l/min/m2 Pulmonic Valve Name Value Normal RVOT Doppler RVOT Peak Gradient 2 mmHg PV Doppler PV Peak Gradient 5 mmHg Mitral Valve Name Value Normal MV Doppler MV Decel [place] 567 cm/s2 MV PHT 57 ms MV Area (PHT) 3.8 cm2 4.0-5.0 MV Diastolic Function MV E Peak Velocity 112 cm/s MV A Peak Velocity 81 cm/s MV E/A 1.4 MV Decel Time 197 ms MV Annular TDI MV E/e' (Septal) 12.7 <=8.0 MV E/e' (Lateral) 7.5 <=8.0 MV E/e' (Average) 10.1 Tricuspid Valve Name Value Normal TV Regurgitation Doppler TR Peak Velocity 253 cm/s TR Peak Gradient 21 mmHg Estimated PAP/RSVP RA Pressure 5 mmHg <=5 PA Systolic Pressure 31 mmHg <36 RV Systolic Pressure 31 mmHg <36 Aorta Name Value Normal Ascending Aorta Ao Root Diameter (MM) 2.2 cm Ao Root Diam Index (MM) 1.4 cm/m2 Aortic Valve Name Value Normal AV Doppler AV Peak Velocity 159 cm/s AV Peak Gradient 10 mmHg AV Mean Gradient 5 mmHg AV VTI 34 cm AV Area (Cont Eq VTI) 2.0 cm2 >=3.0 AV Area (Cont Eq Nabil) 2.6 cm2 AV Regurgitation 2D LVOT Area 3.0 cm2 Ventricles Name Value Normal LV Dimensions 2D/MM IVS Diastolic Thickness (2D) 0.8 cm 0.6-1.0 LVID Diastole (2D) 4.1 cm 3.8-5.2 LVIW Diastolic Thickness (2D) 0.7 cm 0.6-0.9 LVID Systole (2D) 2.5 cm 2.2-3.5 LVOT Diameter 2.0 cm LV Mass (2D Cubed) 88.95 g 67.00-162.00 LV Mass Index (2D Cubed) 55 g/m2 43-95 Relative Wall Thickness (2D) 0.35 LV Fractional Shortening/Ejection Fraction 2D/MM LV Fractional Shortening (2D) 40 % 27-45 LV EF (2D Teicholz) 71 % 54-74 LV Diastolic Volume (4C MOD) 96 ml LV EF (4C MOD) 68 % LV Diastolic Volume (2C MOD) 65 ml LV EF (2C MOD) 74 % LV Diastolic Volume (BP MOD) 79 ml 46-106 LV Diastolic Volume Index (BP MOD) 49 ml/m2 29-61 LV Systolic Volume (BP MOD) 23 ml 14-42 LV Systolic Volume Index (BP MOD) 14 ml/m2 8-24 LV EF (BP MOD) 71 % 54-74 LV Diastolic Length (4C) 7.4 cm LV Systolic Length (4C) 5.4 cm LV Stroke Volume (4C MOD) 65 ml Atria Name Value Normal LA Dimensions LA Dimension (MM) 3.9 cm 2.7-3.8 LA Volume (4C A-L) 44 ml LA Volume (BP A-L) 43 ml RA Dimensions RA Area (4C) 17.4 cm2 <=18.0 EchoPAC Name Value Normal DELBERT AA peak sys SL (AWMA) 22.5 % AAS peak sys SL (AWMA) 34.6 % AI peak sys SL (AWMA) 27.2 % AL peak sys SL (AWMA) 26.5 % AP peak sys SL (AWMA) 35.0 % peak sys SL (AWMA) 28.4 % AVC (AWMA) 365 ms BA peak sys SL (AWMA) 21.4 % BAS peak sys SL (AWMA) 22.8 % BI peak sys SL (AWMA) 28.1 % BL peak sys SL (AWMA) 18.0 % BP peak sys SL (AWMA) 27.3 % BS peak sys SL (AWMA) 23.3 % G peak SL(A2C) (AWMA) 24.6 % G peak SL(A4C) (AWMA) 23.4 % G peak SL(APLAX) (AWMA) 29.5 % G peak SL(Avg) (AWMA) 25.8 % MA peak sys SL (AWMA) 21.2 % MAS peak sys SL (AWMA) 28.0 % VA peak sys SL (AWMA) 29.0 % ML peak sys SL (AWMA) 21.3 % MP peak sys SL (AWMA) 30.2 % MS peak sys SL (AWMA) 25.6 % Report Signatures
== END 2024-03-09 13:39 | disposition home or self-care (01) ==
LOC: ANHCARD 13:38
PROVIDERS: PCP Nurse Practitioner Family; Visit Provider Internal Medicine Cardiovascular Disease
DX: R06.09 Other forms of dyspnea (principal)
CPT/HCPCS: 93306

== ENCOUNTER 2024-04-20 22:51 | Observation (INO) | payer OTHER, SELFPAY ==
--- NOTE | ~2024-04-20 | US_ITS ---
CORRECTED REPORT corrected order description [facility] [place] 04/22/24 This report was recreated on 04/22/24. Original report was [employer] US pelvic complete w TV Ordering provider: Liborio Messina MD History: . PID . Comparison: None. Technique: Transabdominal and endovaginal ultrasound of the pelvis (Doppler ultrasound interrogation techniques used as needed for this exam.) FINDINGS: CERVIX: Normal. UTERUS: Measures 10.4x 8x 9.4 cm in length which is within normal limits and is anteverted. Multiple fibroids seen. Submucous fibroid versus thickened endometrium is seen measuring 4.4 x 3.6 x 3.7 cm. Further evaluation advised. Right inferior fibroid is seen measuring 4.9 x 3.8 x 4.7 cm. CUL DE SAC: Trace free fluid. RIGHT OVARY: Normal in size measuring 3.5x 2.7x 3.2 cm. Normal echotexture. Doppler vascular flow present. LEFT OVARY: Normal in size measuring 3.3x 1.3x 3 cm. Normal echotexture. Doppler vascular flow present. ADNEXA: Normal. No mass. IMPRESSION: Multiple uterine fibroids. Otherwise, normal pelvic ultrasound. Reviewed, dictated and finalized at location A. [employer] MTDD
--- NOTE | ~2024-04-20 | CT_ITS ---
EXAMINATION: CT abdomen pelvis w con DATE: 04/21/2024 04:06 INDICATION: Pelvic pain. TECHNIQUE: Computed tomography (CT) of the abdomen and pelvis was performed with 100 mL Omnipaque 350 intravenous contrast. Automated exposure control and iterative reconstruction technique were employe d. The dose-length product was 336.90 mGy-cm. COMPARISON: None. FINDINGS: The visualized portions of the lung bases demonstrate mild atelectasis. No pleural effusion . The heart size is normal. No pericardial effusion. The liver is normal. There are gallstones in the gallbladder which is normal in size. The spleen, pancreas, adrenal glands, and left kidney are uyen l. There is mild right hydronephrosis and hydroureter. There are multiple fibroids in uterus measurin g up to 5.9 cm. The appendix is normal. There are no dilated loops of bowel. There are no pathologica lly enlarged lymph nodes. There is no free intraperitoneal fluid. There is mild lumbar spondylosis. IMPRESSION: 1. Uterine fibroids. 2. Mild right hydronephrosis and hydroureter secondary to the enlarged uterus. Reviewed, dictated and finalized at location A. [employer]
[2024-04-20 22:54] VITALS: BP 171/83; PULSE 104; RESP 16; TEMP 37.1; O2SAT 100
[2024-04-21] VITALS (10 sets, daily range): BP systolic 100–161; BP diastolic 50–91; PULSE 71–106; RESP 14–20; TEMP 36.4–38.6; O2SAT 100; BMI 26.7
--- NOTE | 2024-04-21 01:48 | ED.GENADULT ---
HPI - General Adult General Chief complaint: Unspecified <Lorraine Robles PA-C - Last Filed: 04/27/24 19:01> Stated complaint: pelvic pain, flu like sx <Lorraine Robles PA-C - Last Filed: 04/27/24 19:01> Time Seen by Provider: 04/21/24 01:37 <Lorraine Robles PA-C - Last Filed: 04/27/24 19:01> History of Present Illness HPI narrative: 43-year-old female with history of menometrorrhagia and uterine fibroids presents to the emergency department with at bedside for pelvic pain and vaginal bleeding. Patient states approximately 1 month ago she got a light period and has had frequent spotting since. States yesterday she had an increase in her menstrual flow like a normal period. Today she began developing lower abdominal cramping and pain which is unlike her normal menstrual cramps. States she has been using pads and depends and has been having to change them every couple of hours. She notes that her period does not seem that heavy but she has had clear drainage from her vagina. She denies other vaginal discharge or concern for STDs. Denies fever but is reporting chills and body aches. Denies dysuria or hematuria. Her OBGYN is Dr. Messina. She has history tubal ligation. Also has a history of anemia and has to undergo a transfusions for this with Dr. Houston. <Lorraine Robles PA-C - Last Filed: 04/27/24 19:01> Related Data Home medications: Home Medications ?Medication ?Instructions ?Recorded ?Confirmed ?Last Taken ?Type ferrous sulfate 325 mg (65 mg 325 mg PO .Q48HR 04/21/24 04/21/24 Unknown History iron) tablet <DIONICIO Ellis Last Filed: 04/27/24 19:01> Allergies/adverse reactions: Allergies Allergy/AdvReac Type Severity Reaction Status Date / Time No Known Allergies Allergy Verified 04/13/24 16:04 <DIONICIO Ellis Last Filed: 04/27/24 19:01> Review of Systems Review of Systems: All systems reviewed & are unremarkable except as noted in HPI and below <DIONICIO Ellis Last Filed: 04/27/24 19:01> [facility] Past Medical History Medical History: Medical History COVID-19 02/2020 Scarlet fever Palpitations Dizziness Heartburn Mother currently breast-feeding delivery delivered <Lorraine Robles PA-C - Last Filed: 04/27/24 19:01> Surgical History Surgical History: Surgical History H/O tubal ligation (05/19/19) Previous section (05/19/19) primary c/s Breech presentation <Lorraine Robles PA-C - Last Filed: 04/27/24 19:01> Family History Family History: Family History Father Family history of cardiovascular disease Hypertension Diabetes mellitus Mother Hypertension Disorder of thyroid Grandparent Diabetes mellitus <Lorraine Robles PA-C - Last Filed: 04/27/24 19:01> Social History Social History: Social History Smoking status: Never smoker Second hand tobacco smoke exposure: No Alcohol intake: never Substance use: never Substance use type: does not use Do You Feel Safe in your Home?: Yes Lack of Transportation: No Lack of Food: Never True Current Housing: I Have Housing Concerned About Future Housing: No Difficulty Paying Gas/Electric Bills: No Difficulty Paying for Meds: No Currently Unemployed: No Education: High School Diploma/GED Difficulty w/ Childcare or Family Care: No Living arrangements: with family Additional living arrangements comments: Occupation/Education: other Additional occupation/education comments: stay at home mom Gender identity (if verbalized by the patient): Female Sexual Orientation (if Verbalized by the Patient): Straight or Heterosexual Spiritual care concerns: No <Lorraine Robles PA-C - Last Filed: 04/27/24 19:01> Exam Narrative: GENERAL: Anxious-appearing, well-nourished, and in no acute distress. HEAD: Normocephalic, atraumatic. EYES: EOMI. ENT: Nares clear, no rhinorrhea or epistaxis. Mucous membranes moist. NECK: Supple. CHEST: Clear to auscultation. No respiratory distress. HEART: Regular rate and rhythm. No murmur heard. Normal peripheral pulses. ABDOMEN: Soft, nontender, nondistended, normal active bowel sounds. No rebound, guarding or rigidity. No CVA tenderness : Copious pink tinged fluid in the vaginal vault with strands of purulent clumps. Cervical os closed. Cervical motion tenderness on exam. Diffuse adnexal tenderness bilaterally, no masses EXTREMITIES: Normal range of motion. No edema. SKIN: Warm, dry, no rash. NEURO: No focal deficits. Alert and oriented x3 <Lorraine Robles PA-C - Last Filed: 04/27/24 19:01> Course Course Emergency Course: [place] [id number] scan results. Large fibroids evidence on imaging. Discussed with Dr. Shukla he will consult on patient since he sees her in practice. No other recommendations. CT imaging discussed with patient, and advised admission given sepsis markers and UA results. <Afsaneh Flores MD - Last Filed: 04/21/24 09:27> Reevaluation(s) Reevaluation #1: OB Gyne was consulted. Case was discussed with the hospitalist patient was accepted for admission. <Ronny Miles MD - Last Filed: 04/21/24 13:49> Vital Signs Vital signs: Vital Signs Temperature 98.8 F 04/20/24 22:54 Pulse Rate 104 H 04/20/24 22:54 Respiratory Rate 16 04/20/24 22:54 Blood Pressure 171/83 H 04/20/24 22:54 Pulse Oximetry 100 04/20/24 22:54 Oxygen Delivery Room Air 04/20/24 22:54 Temperature 97 F L 04/23/24 14:00 Pulse Rate 77 04/23/24 14:00 Respiratory Rate 16 04/23/24 14:00 Blood Pressure 117/70 04/23/24 14:00 Pulse Oximetry 100 04/23/24 14:00 Oxygen Delivery Room Air 04/23/24 08:00 Fraction of Inspired Oxygen 21 04/22/24 07:41 <Lorraine Robles PA-C - Last Filed: 04/27/24 19:01> Vital Signs Temperature 98.8 F 04/20/24 22:54 Pulse Rate 104 H 04/20/24 22:54 Respiratory Rate 16 04/20/24 22:54 Blood Pressure 171/83 H 04/20/24 22:54 Pulse Oximetry 100 04/20/24 22:54 Oxygen Delivery Room Air 04/20/24 22:54 Temperature 97 F L 04/23/24 14:00 Pulse Rate 77 04/23/24 14:00 Respiratory Rate 16 04/23/24 14:00 Blood Pressure 117/70 04/23/24 14:00 Pulse Oximetry 100 04/23/24 14:00 Oxygen Delivery Room Air 04/23/24 08:00 Fraction of Inspired Oxygen 21 04/22/24 07:41 <Ronny Miles MD - Last Filed: 04/21/24 13:49> Vital Signs Temperature 98.8 F 04/20/24 22:54 Pulse Rate 104 H 04/20/24 22:54 Respiratory Rate 16 04/20/24 22:54 Blood Pressure 171/83 H 04/20/24 22:54 Pulse Oximetry 100 04/20/24 22:54 Oxygen Delivery Room Air 04/20/24 22:54 Temperature 97 F L 04/23/24 14:00 Pulse Rate 77 04/23/24 14:00 Respiratory Rate 16 04/23/24 14:00 Blood Pressure 117/70 04/23/24 14:00 Pulse Oximetry 100 04/23/24 14:00 Oxygen Delivery Room Air 04/23/24 08:00 Fraction of Inspired Oxygen 21 04/22/24 07:41 <Afsaneh Flores MD - Last Filed: 04/21/24 09:27> Medical Decision Making MDM Narrative Medical decision making narrative: 43-year-old female history of uterine fibroids, menometrorrhagia, DAVID presents to emergency department for pelvic pain and vaginal bleeding. See HPI for further history. Triage vitals with hypertension and mild tachycardia 104. She is afebrile. Pelvic exam is significant for copious amount of pink tinged fluid in the vaginal vault with intermittent strands of purulence who and positive cervical motion tenderness. Lab work is significant for leukocytosis of 22.7, hemoglobin is actually increased from baseline at 10.2. Patient meets sepsis criteria he was started on 30 mL/kg of fluids and Rocephin, doxycycline and metronidazole for presumed PID. Her urinalysis does show 5100 wbc's 11-20 RBCs. Chemistries are largely unremarkable. Pending CT abdomen pelvis at time of sign-out to Dr. Flores. Plan to admit for IV antibiotics. <Lorraine Robles PA-C - Last Filed: 04/27/24 19:01> Vital Signs Vital Signs: Vital Signs Temperature 98.8 F 04/20/24 22:54 Pulse Rate 104 H 04/20/24 22:54 Respiratory Rate 16 04/20/24 22:54 Blood Pressure 171/83 H 04/20/24 22:54 Pulse Oximetry 100 04/20/24 22:54 Oxygen Delivery Room Air 04/20/24 22:54 Temperature 97 F L 04/23/24 14:00 Pulse Rate 77 04/23/24 14:00 Respiratory Rate 16 04/23/24 14:00 Blood Pressure 117/70 04/23/24 14:00 Pulse Oximetry 100 04/23/24 14:00 Oxygen Delivery Room Air 04/23/24 08:00 Fraction of Inspired Oxygen 21 04/22/24 07:41 <Lorraine Robles PA-C - Last Filed: 04/27/24 19:01> Vital Signs Temperature 98.8 F 04/20/24 22:54 Pulse Rate 104 H 04/20/24 22:54 Respiratory Rate 16 04/20/24 22:54 Blood Pressure 171/83 H 04/20/24 22:54 Pulse Oximetry 100 04/20/24 22:54 Oxygen Delivery Room Air 04/20/24 22:54 Temperature 97 F L 04/23/24 14:00 Pulse Rate 77 04/23/24 14:00 Respiratory Rate 16 04/23/24 14:00 Blood Pressure 117/70 04/23/24 14:00 Pulse Oximetry 100 04/23/24 14:00 Oxygen Delivery Room Air 04/23/24 08:00 Fraction of Inspired Oxygen 21 04/22/24 07:41 <Ronyn Miles MD - Last Filed: 04/21/24 13:49> Vital Signs Temperature 98.8 F 04/20/24 22:54 Pulse Rate 104 H 04/20/24 22:54 Respiratory Rate 16 04/20/24 22:54 Blood Pressure 171/83 H 04/20/24 22:54 Pulse Oximetry 100 04/20/24 22:54 Oxygen Delivery Room Air 04/20/24 22:54 Temperature 97 F L 04/23/24 14:00 Pulse Rate 77 04/23/24 14:00 Respiratory Rate 16 04/23/24 14:00 Blood Pressure 117/70 04/23/24 14:00 Pulse Oximetry 100 04/23/24 14:00 Oxygen Delivery Room Air 04/23/24 08:00 Fraction of Inspired Oxygen 21 04/22/24 07:41 <Afsaneh Flores MD - Last Filed: 04/21/24 09:27> Lab Data Result diagrams: 04/23/24 05:22 04/23/24 05:22 <Lorraine Robles PA-C - Last Filed: 04/27/24 19:01> Labs: Lab Results 04/21/24 04/21/24 04/21/24 Range/Units 02:20 02:23 04:24 WBC 22.7 H (4.5-10.0) K/mm3 RBC 4.09 L (4.2-5.4) M/mm3 Hgb 10.2 L (12.0-15.0) g/dL Hct 34.0 L (37.0-47.0) % MCV 83.1 (80-100) fl MCH 24.9 L (26-34) pg MCHC 30.0 L (32-36) g/dl RDW 25.2 H (11.5-14.5) % Plt Count 263 (150-375) k/mm3 MPV 10.5 H (7.4-10.4) fl Immature Gran % (Auto) 0.6 H (0-0.5) % Neut % (Auto) 91.9 H (45.5-73.1) % Lymph % (Auto) 2.1 L (18.3-44.2) % [place] % (Auto) 5.2 (2.6-8.5) % Eos % (Auto) 0.0 (0-4.4) % Baso % (Auto) 0.2 (0.2-1.2) % Lymph # (Auto) 0.48 L (0.9-3.2) K/mm3 [place] # (Auto) 1.2 H (0.1-0.6) K/mm3 Eos # (Auto) 0.0 (0-0.3) K/mm3 Baso # (Auto) 0.0 (0.0-0.1) K/mm3 Abs Immat Gran (auto) 0.13 H (0.00-0.031) K/mm3 Absolute Neuts (auto) 20.9 H (1.3-6.7) K/mm3 Absolute Nucleated RBC 0.000 (0.0-0.012) K/mm3 Nucleated RBC % 0.0 (0.0-0.2) % Platelet Estimate Adequate (Adequate) Hypochromasia 2+ Anisocytosis 1+ Tear Drop Cells 1+ Ovalocytes 1+ Stomatocytes 1+ Schistocytes Rare ESR 17 (0-20) mm/hr PT 14.8 H (11.1-14.7) Seconds INR 1.1 APTT 31.9 (22.3-36.8) Seconds Sodium 135 L (137-145) mmol/L Potassium 3.6 (3.4-5.0) mmol/L Chloride 108 H (98-107) mmol/L Carbon Dioxide 21 L (22-30) mmol/L Anion Gap 6 (4-12) mmol/L BUN 12 (7-17) mg/dL Creatinine 0.60 L (0.7-1.0) mg/dL Estim Creat Clear Calc 85 ml/min Estimated GFR > 60 (59 - ) Glucose 122 H (65-110) mg/dL Lactic Acid 1.2 (0.7-2.0) mmol/L Calcium 9.0 (8.4-10.2) mg/dL Total Bilirubin 1.2 (0.2-1.3) mg/dL AST 22 (14-36) U/L ALT 14 (6-35) U/L Alkaline Phosphatase 54 (38-126) U/L C-Reactive Protein 2.6 H (<1.0) mg/dL Total Protein 7.0 (6.3-8.2) g/dL Albumin 4.3 (3.5-5.1) g/dL TSH (Reflex) 1.090 (0.465-4.68) uIU/mL Urine Color Yellow (Yellow) Urine Appearance Clear (Clear) Urine pH 8.5 (5.0-9.0) Ur Specific [place] 1.024 (1.001-1.035) Urine Protein 1+ H (Negative) mg/dL Urine Glucose (UA) Negative (Negative) mg/dL Urine Ketones Trace H (Negative) mg/dL Ur Blood (Man) 1+ H (Negative) Urine Nitrate Negative (Negative) Urine Bilirubin Negative (Negative) Urine Urobilinogen 1.0 (<2.0) mg/dL Leukocyte Esterase Rfl 2+ H (Negative) BETTY/UL Urine RBC 11-20 H (0-2) /hpf Urine WBC 51-100 H (0-3) /hpf Ur Squamous Epith Cells None seen (Few) /hpf Urine Bacteria Trace /hpf Urine Casts 0-2 POC Urine HCG, Qual Negative (Negative) C. trachomatis (PCR) Not detected (NOT DETECTE) Influenza A (RT-PCR) Negative (Negative) Influenza B (RT-PCR) Negative (Negative) N. gonorrhoeae (PCR) Not detected (NOT DETECTE) RSV (RT-PCR) Negative (Negative) SARS-CoV-2 RNA (RT-PCR) Negative (Negative) T. vaginalis (PCR) Not detected (NOT DETECTE) <Lorraine Robles PA-C - Last Filed: 04/27/24 19:01> Lab Results 04/21/24 04/21/24 04/21/24 Range/Units 02:20 02:23 04:24 WBC 22.7 H (4.5-10.0) K/mm3 RBC 4.09 L (4.2-5.4) M/mm3 Hgb 10.2 L (12.0-15.0) g/dL Hct 34.0 L (37.0-47.0) % MCV 83.1 (80-100) fl MCH 24.9 L (26-34) pg MCHC 30.0 L (32-36) g/dl RDW 25.2 H (11.5-14.5) % Plt Count 263 (150-375) k/mm3 MPV 10.5 H (7.4-10.4) fl Immature Gran % (Auto) 0.6 H (0-0.5) % Neut % (Auto) 91.9 H (45.5-73.1) % Lymph % (Auto) 2.1 L (18.3-44.2) % [place] % (Auto) 5.2 (2.6-8.5) % Eos % (Auto) 0.0 (0-4.4) % Baso % (Auto) 0.2 (0.2-1.2) % Lymph # (Auto) 0.48 L (0.9-3.2) K/mm3 [place] # (Auto) 1.2 H (0.1-0.6) K/mm3 Eos # (Auto) 0.0 (0-0.3) K/mm3 Baso # (Auto) 0.0 (0.0-0.1) K/mm3 Abs Immat Gran (auto) 0.13 H (0.00-0.031) K/mm3 Absolute Neuts (auto) 20.9 H (1.3-6.7) K/mm3 Absolute Nucleated RBC 0.000 (0.0-0.012) K/mm3 Nucleated RBC % 0.0 (0.0-0.2) % Platelet Estimate Adequate (Adequate) Hypochromasia 2+ Anisocytosis 1+ Tear Drop Cells 1+ Ovalocytes 1+ Stomatocytes 1+ Schistocytes Rare ESR 17 (0-20) mm/hr PT 14.8 H (11.1-14.7) Seconds INR 1.1 APTT 31.9 (22.3-36.8) Seconds Sodium 135 L (137-145) mmol/L Potassium 3.6 (3.4-5.0) mmol/L Chloride 108 H (98-107) mmol/L Carbon Dioxide 21 L (22-30) mmol/L Anion Gap 6 (4-12) mmol/L BUN 12 (7-17) mg/dL Creatinine 0.60 L (0.7-1.0) mg/dL Estim Creat Clear Calc 85 ml/min Estimated GFR > 60 (59 - ) Glucose 122 H (65-110) mg/dL Lactic Acid 1.2 (0.7-2.0) mmol/L Calcium 9.0 (8.4-10.2) mg/dL Total Bilirubin 1.2 (0.2-1.3) mg/dL AST 22 (14-36) U/L ALT 14 (6-35) U/L Alkaline Phosphatase 54 (38-126) U/L C-Reactive Protein 2.6 H (<1.0) mg/dL Total Protein 7.0 (6.3-8.2) g/dL Albumin 4.3 (3.5-5.1) g/dL TSH (Reflex) 1.090 (0.465-4.68) uIU/mL Urine Color Yellow (Yellow) Urine Appearance Clear (Clear) Urine pH 8.5 (5.0-9.0) Ur Specific [place] 1.024 (1.001-1.035) Urine Protein 1+ H (Negative) mg/dL Urine Glucose (UA) Negative (Negative) mg/dL Urine Ketones Trace H (Negative) mg/dL Ur Blood (Man) 1+ H (Negative) Urine Nitrate Negative (Negative) Urine Bilirubin Negative (Negative) Urine Urobilinogen 1.0 (<2.0) mg/dL Leukocyte Esterase Rfl 2+ H (Negative) BETTY/UL Urine RBC 11-20 H (0-2) /hpf Urine WBC 51-100 H (0-3) /hpf Ur Squamous Epith Cells None seen (Few) /hpf Urine Bacteria Trace /hpf Urine Casts 0-2 POC Urine HCG, Qual Negative (Negative) C. trachomatis (PCR) Not detected (NOT DETECTE) Influenza A (RT-PCR) Negative (Negative) Influenza B (RT-PCR) Negative (Negative) N. gonorrhoeae (PCR) Not detected (NOT DETECTE) RSV (RT-PCR) Negative (Negative) SARS-CoV-2 RNA (RT-PCR) Negative (Negative) T. vaginalis (PCR) Not detected (NOT DETECTE) <Ronny Miles MD - Last Filed: 04/21/24 13:49> Lab Results 04/21/24 04/21/24 04/21/24 Range/Units 02:20 02:23 04:24 WBC 22.7 H (4.5-10.0) K/mm3 RBC 4.09 L (4.2-5.4) M/mm3 Hgb 10.2 L (12.0-15.0) g/dL Hct 34.0 L (37.0-47.0) % MCV 83.1 (80-100) fl MCH 24.9 L (26-34) pg MCHC 30.0 L (32-36) g/dl RDW 25.2 H (11.5-14.5) % Plt Count 263 (150-375) k/mm3 MPV 10.5 H (7.4-10.4) fl Immature Gran % (Auto) 0.6 H (0-0.5) % Neut % (Auto) 91.9 H (45.5-73.1) % Lymph % (Auto) 2.1 L (18.3-44.2) % [place] % (Auto) 5.2 (2.6-8.5) % Eos % (Auto) 0.0 (0-4.4) % Baso % (Auto) 0.2 (0.2-1.2) % Lymph # (Auto) 0.48 L (0.9-3.2) K/mm3 [place] # (Auto) 1.2 H (0.1-0.6) K/mm3 Eos # (Auto) 0.0 (0-0.3) K/mm3 Baso # (Auto) 0.0 (0.0-0.1) K/mm3 Abs Immat Gran (auto) 0.13 H (0.00-0.031) K/mm3 Absolute Neuts (auto) 20.9 H (1.3-6.7) K/mm3 Absolute Nucleated RBC 0.000 (0.0-0.012) K/mm3 Nucleated RBC % 0.0 (0.0-0.2) % Platelet Estimate Adequate (Adequate) Hypochromasia 2+ Anisocytosis 1+ Tear Drop Cells 1+ Ovalocytes 1+ Stomatocytes 1+ Schistocytes Rare ESR 17 (0-20) mm/hr PT 14.8 H (11.1-14.7) Seconds INR 1.1 APTT 31.9 (22.3-36.8) Seconds Sodium 135 L (137-145) mmol/L Potassium 3.6 (3.4-5.0) mmol/L Chloride 108 H (98-107) mmol/L Carbon Dioxide 21 L (22-30) mmol/L Anion Gap 6 (4-12) mmol/L BUN 12 (7-17) mg/dL Creatinine 0.60 L (0.7-1.0) mg/dL Estim Creat Clear Calc 85 ml/min Estimated GFR > 60 (59 - ) Glucose 122 H (65-110) mg/dL Lactic Acid 1.2 (0.7-2.0) mmol/L Calcium 9.0 (8.4-10.2) mg/dL Total Bilirubin 1.2 (0.2-1.3) mg/dL AST 22 (14-36) U/L ALT 14 (6-35) U/L Alkaline Phosphatase 54 (38-126) U/L C-Reactive Protein 2.6 H (<1.0) mg/dL Total Protein 7.0 (6.3-8.2) g/dL Albumin 4.3 (3.5-5.1) g/dL TSH (Reflex) 1.090 (0.465-4.68) uIU/mL Urine Color Yellow (Yellow) Urine Appearance Clear (Clear) Urine pH 8.5 (5.0-9.0) Ur Specific [place] 1.024 (1.001-1.035) Urine Protein 1+ H (Negative) mg/dL Urine Glucose (UA) Negative (Negative) mg/dL Urine Ketones Trace H (Negative) mg/dL Ur Blood (Man) 1+ H (Negative) Urine Nitrate Negative (Negative) Urine Bilirubin Negative (Negative) Urine Urobilinogen 1.0 (<2.0) mg/dL Leukocyte Esterase Rfl 2+ H (Negative) BETTY/UL Urine RBC 11-20 H (0-2) /hpf Urine WBC 51-100 H (0-3) /hpf Ur Squamous Epith Cells None seen (Few) /hpf Urine Bacteria Trace /hpf Urine Casts 0-2 POC Urine HCG, Qual Negative (Negative) C. trachomatis (PCR) Not detected (NOT DETECTE) Influenza A (RT-PCR) Negative (Negative) Influenza B (RT-PCR) Negative (Negative) N. gonorrhoeae (PCR) Not detected (NOT DETECTE) RSV (RT-PCR) Negative (Negative) SARS-CoV-2 RNA (RT-PCR) Negative (Negative) T. vaginalis (PCR) Not detected (NOT DETECTE) <Afsaneh Flores MD - Last Filed: 04/21/24 09:27> Discharge Plan Discharge Clinical Impression: Sepsis, Vaginal discharge Fibroid uterus Qualifiers: Uterine leiomyoma location: unspecified location Qualified Code(s): D25.9 - Leiomyoma of uterus, unspecified <Lorraine Robles PA-C - Last Filed: 04/27/24 19:01> Patient Disposition: Still a Patient <Lorraine Robles PA-C - Last Filed: 04/27/24 19:01> Condition: Stable <Lorraine Robles PA-C - Last Filed: 04/27/24 19:01>
[2024-04-21 02:25] LABS: BEDSIDEPREGUCG Negative (Negative)
[2024-04-21] MEDS: SODIUM CHLORIDE 0.9% IV 1,000 ML 999 ML IV CONT ×2 (02:26→03:48)
[2024-04-21] MEDS: KETOROLAC 15 MG/ML VIAL (*BKC) IV PUSH (02:27)
[2024-04-21] MEDS: ONDANSETRON INJ 4 MG/2 ML VIAL IV PUSH (02:27)
[2024-04-21 02:28] LABS: Basophils Percent Auto 0.2 % (0.2-1.2); Hemoglobin 10.2 g/dL (12.0-15.0); Immature Granulocyte Absolute 0.13 K/mm3 (0.00-0.031); Immature Granulocyte Percent A 0.6 % (0-0.5); Lymphocytes Absolute Auto 0.48 K/mm3 (0.9-3.2); Lymphocytes Percent Auto 2.1 % (18.3-44.2); Mean Corpuscular Hemoglobin 24.9 pg (26-34); Mean Corpuscular Volume 83.1 fl (80-100); Mean Platelet Volume 10.5 fl (7.4-10.4); Monocytes Absolute Auto 1.2 K/mm3 (0.1-0.6); Monocytes Percent Auto 5.2 % (2.6-8.5); Neutrophils Absolute Auto 20.9 K/mm3 (1.3-6.7); Neutrophils Percent Auto 91.9 % (45.5-73.1); Platelet Count Result 263 k/mm3 (150-375); Red Blood Count 4.09 M/mm3 (4.2-5.4); Red Cell Distribution Width 25.2 % (11.5-14.5); White Blood Count 22.7 K/mm3 (4.5-10.0)
[2024-04-21 02:36] LABS: Add Urine Microscopic? YES; Appearance Urine Clear (Clear); Bilirubin Urine Negative (Negative); Blood Urine 1+ (Negative); Color Urine Yellow (Yellow); Glucose Urine UA Negative (Negative); Ketones Urine Trace mg/dL (Negative); Leukocyte Esterase Ur 2+ LEU/UL (Negative); Nitrate Urine Negative (Negative); Non Pathogenic Casts 0-2; Protein Urine 1+ mg/dL (Negative); Specific Grav Ur 1.024 (1.001-1.035); Squamous Epithelial Cell Urine None Seen /hpf (Few); WBC Urine 51-100 /hpf (0-3); pH Urine 8.5 (5.0-9.0)
[2024-04-21 02:38] LABS: Bacteria Urine Trace /hpf
[2024-04-21 02:42] LABS: Alanine Aminotransferase 14 U/L (6-35); Albumin Level 4.3 g/dL (3.5-5.1); Alkaline Phosphatase 54 U/L (38-126); Anion Gap 6 mmol/L (4-12); Aspartate Amino Transferase 22 U/L (14-36); Bilirubin,Total 1.2 mg/dL (0.2-1.3); Blood Urea Nitrogen 12 mg/dL (7-17); Carbon Dioxide 21 mmol/L (22-30); Chloride 108 mmol/L (98-107); Estimated CRCL calculation 85 ml/min; Estimated Glomerular Filt Rate > 60; Glucose 122 mg/dL (65-110); Potassium 3.6 mmol/L (3.4-5.0); Sodium 135 mmol/L (137-145)
[2024-04-21 02:46] LABS: INR 1.1; Prothrombin Time 14.8 Seconds (11.1-14.7)
[2024-04-21 02:47] LABS: Partial Thromboplastin Time 31.9 Seconds (22.3-36.8)
[2024-04-21 03:06] LABS: Influenza A QL RT-PCR Negative (Negative); Influenza B QL RT-PCR Negative (Negative); RSV RNA, RT-PCR Negative (Negative); SARS-CoV-2 RNA PCR Negative (Negative)
[2024-04-21 03:08] LABS: Platelet Estimate Adequate (Adequate)
[2024-04-21 03:09] LABS: Anisocytosis 1+; Hypochromasia 2+; Ovalocytes 1+; Schistocytes Rare; Stomatocytes 1+; Tear Drop Cells 1+
[2024-04-21 03:43] LABS: CRP 2.6 mg/dL (<1.0)
[2024-04-21] MEDS: SODIUM CHLORIDE 0.9% IV 900 ML 999 ML IV CONT (03:49)
[2024-04-21 04:06] LABS: Lactic Acid Reflex 1.2 mmol/L (0.7-2.0)
[2024-04-21 04:09] LABS: Trichomonas Vag PCR NOT DETECTED (NOT DETECTE)
[2024-04-21 04:29] LABS: Chlamydia trachomatis NOT DETECTED (NOT DETECTE); Neisseria gonorrhoeae PCR NOT DETECTED (NOT DETECTE)
[2024-04-21 05:01] LABS: Erythrocyte Sedimentation Rate 17 mm/hr (0-20)
[2024-04-21] MEDS: metroNIDAZOLE 500 MG/ISO 100ML 500 MG/100 ML BAG 100 MG IVPB ×3 (05:22→22:02)
[2024-04-21] MEDS: DOXYCYCLINE 100 MG/NS 100 ML 100 MG/100 ML BAG IVPB ×3 (06:31→20:52)
--- NOTE | 2024-04-21 08:32 | PC.NURSE ---
0826-Report called, floor nurse took report and stated that the room was not clean and would call back when housekeeping is done. Charge nurse notified.
--- NOTE | 2024-04-21 08:55 | PC.NURSE ---
0844-Called floor to check on status of room, housekeeping still cleaning room.
--- NOTE | 2024-04-21 09:40 | ADMGEN ---
This patient, Angeline Reardon, was admitted to Medical Room 341-01. Patient/family oriented to hospital policies and general routines including ID bracelet, bed and alarms, visiting hours, pain management, procedures, bathroom and other care routines, personal items, smoking policy, room service/diet, and visiting hours. Information on how to activate the Rapid Response Team has been discussed. Patient/Family are encouraged to report perceived risks to care and to ask questions if they do not understand what they are told or what they should do.
--- NOTE | 2024-04-21 11:49 | P.HP_ITS ---
H&P: HPI History of Present Illness Date/Time: 04/21/24 11:49 Chief Complaint: fever and vaginal discharge Narrative: 43 yo female with chronic anemia on frequent iron infusion who presented to the ER on account of lower abd pain, fever and vaginal discharge. Patient noted she was in her usual state of health until 2 days ago she started having regular cycle yesterday change to watery discharge with no abdominal pain and fever. Noted no prior episodes. Denies any vomiting chest shortness on dysuria no focal symptoms. ER evaluation notable for temperature of 5 rate 3, respiratory 18, blood pressure 115/56, saturation 97% on room air. Labs notable for WBC 22.7, hemoglobin 2, creatinine UA positive leukocyte Estrace with pyuria microscopic hematuria. CT abdomen showed a uterine fibroids with my right hydronephrosis and hydroureter secondary to enlarged uterus. Special Education Science Teacher consulted from the ER prior to admission. She was on Rocephin, doxycycline Flagyl prior to admission. Review of Systems Review of Systems: All other systems reviewed and negative except as noted in the history above. [facility] Past Medical History Medical History COVID-19 02/2020 Scarlet fever Palpitations Dizziness Heartburn Mother currently breast-feeding delivery delivered Surgical History Surgical History H/O tubal ligation (05/19/19) Previous section (05/19/19) primary c/s Breech presentation Family History Family History Father Family history of cardiovascular disease Hypertension Diabetes mellitus Mother Hypertension Disorder of thyroid Grandparent Diabetes mellitus Social History Social History Smoking status: Never smoker Second hand tobacco smoke exposure: No Alcohol intake: never Substance use: never Substance use type: does not use Do You Feel Safe in your Home?: Yes Lack of Transportation: No Lack of Food: Never True Current Housing: I Have Housing Concerned About Future Housing: No Difficulty Paying Gas/Electric Bills: No Difficulty Paying for Meds: No Currently Unemployed: No Education: High School Diploma/GED Difficulty w/ Childcare or Family Care: No Living arrangements: with family Additional living arrangements comments: Occupation/Education: other Additional occupation/education comments: stay at home mom Gender identity (if verbalized by the patient): Female Sexual Orientation (if Verbalized by the Patient): Straight or Heterosexual Spiritual care concerns: No Meds Home Medications and Allergies Home Medications ?Medication ?Instructions ?Recorded ?Confirmed ?Type cholecalciferol (vitamin D3) 25 25 mcg PO DAILY #90 tabs 03/11/24 04/21/24 Rx mcg (1,000 unit) tablet mecobalamin (vitamin B12) 1,000 1,000 mcg PO DAILY #90 tabs 03/11/24 04/21/24 Rx mcg chewable tablet azithromycin 250 mg tablet See Rx Instructions PO .COMPLEX #6 04/02/24 04/21/24 Rx (Zithromax Z-Jeremiah) tabs ferrous sulfate 325 mg (65 mg 325 mg PO .Q48HR 04/21/24 04/21/24 History iron) tablet Allergies Allergy/AdvReac Type Severity Reaction Status Date / Time No Known Allergies Allergy Verified 04/13/24 16:04 Vital Signs Vital Signs - 24 hr 04/20/24 22:54 04/21/24 01:46 04/21/24 02:02 Temperature 98.8 F 98.7 F 97.8 F Pulse Rate 104 H 106 H 86 Respiratory Rate 16 20 14 Blood Pressure 171/83 H 161/91 H 133/79 Pulse Oximetry 100 100 100 Oxygen Delivery Room Air 04/21/24 03:16 04/21/24 05:39 04/21/24 06:34 Temperature 97.8 F 98.1 F 98 F Pulse Rate 71 106 H 102 H Respiratory Rate 16 16 16 Blood Pressure 130/69 118/53 L 140/76 Pulse Oximetry 100 100 100 Oxygen Delivery 04/21/24 10:07 Temperature 101.5 F H Pulse Rate 103 H Respiratory Rate 18 Blood Pressure 115/56 L Pulse Oximetry 100 Oxygen Delivery Exam Narrative: General: alert and comfortable Eyes: EOMI, PERRLA ENNT External ears normal, Neck is supple, no masses, Respiratory systems: Clear to auscultation Cardiovascular S1, S2, normal rhythm, no murmur, rub, or gallop; no thrill or palpable murmurs on palpation. Gastrointestinal: Suprapubic tenderness.; BS present Skin: no rash, lesions, ulcerations, subcutaneous nodules or induration Musculoskeletal: no abnormality and no tenderness, normal ROM Neurologic: Alert and oriented x3, non focal exam: Deferred H&P: Results Labs Labs: Short CBC 04/21/24 Range/Units 02:20 WBC 22.7 H (4.5-10.0) K/mm3 Hgb 10.2 L (12.0-15.0) g/dL Hct 34.0 L (37.0-47.0) % Plt Count 263 (150-375) k/mm3 BMP 04/21/24 02:20 Sodium 135 L Potassium 3.6 Chloride 108 H Carbon Dioxide 21 L BUN 12 Creatinine 0.60 L Glucose 122 H Calcium 9.0 Liver Function 04/21/24 Range/Units 02:20 Total Bilirubin 1.2 (0.2-1.3) mg/dL AST 22 (14-36) U/L ALT 14 (6-35) U/L Alkaline Phosphatase 54 (38-126) U/L Albumin 4.3 (3.5-5.1) g/dL Urine 04/21/24 Range/Units 02:20 Urine Color Yellow (Yellow) Urine Appearance Clear (Clear) Urine pH 8.5 (5.0-9.0) Ur Specific [place] 1.024 (1.001-1.035) Urine Protein 1+ H (Negative) mg/dL Urine Glucose (UA) Negative (Negative) mg/dL Assessment and Plan Assessment and plan (1) PID (acute pelvic inflammatory disease): Code(s): N73.0 - Acute parametritis and pelvic cellulitis Status: Acute (2) Iron deficiency anemia: Qualifiers: Iron deficiency anemia type: chronic blood loss Qualified Code(s): D50.0 - Iron deficiency anemia secondary to blood loss (chronic) Code(s): D50.9 - Iron deficiency anemia, unspecified Status: Acute Plan Pelvic inflammatory disease Patient presented wit fever, lower abdominal pain and vaginal discharge Exam notable for suprapubic tenderness CT showed fibroid with hydronephrosis. Blood and urine culture ordered, vaginal swab ordered. Pelvic ultrasound ordered. Special Education Science Teacher consulted from the Monitor closely. Sepsis From PID Patient is tachycardic with fever and leukocytosis Continue IV fluid number care. Monitor closely Fibroid with right hydronephrosis and hydroureter from mass effect. Special Education Science Teacher consulted Renal function within normal limits. Chronic iron deficiency Patient on frequent infusion of patient, follows with Hematology. Continue outpatient follow-up. DVT prophylaxis subQ Lovenox. Patient is full code Surrogate decision maker is Basim Brooks [facility] Advance Care Plan I have confirmed that the patient's Advanced Care Plan is present, code status is documented, or surrogate decision maker is listed in patient medical record.: Yes Medication Reconciliation I have utilized all available resources to obtain, update and review the patients current medications (includes all prescriptions, OTC, herbals, cannabis, and nutritional supplements).: Yes
[2024-04-21] MEDS: SODIUM CHLORIDE 0.9% IV 1,000 ML 100 ML IV CONT ×2 (12:27→22:07)
[2024-04-21] MEDS: ACETAMINOPHEN 325 MG TABLET 650 MG PO (12:28)
--- NOTE | 2024-04-21 12:58 | P.PNOB_ITS ---
LAUNDRY ASSISTANT - A/P Time Spent With Patient Time: Total time spent is greater than 50% in coordination of care (as documented) at patient's floor/unit and/or counseling patient: Time with patient: 15 - 25 minutes LAUNDRY ASSISTANT- PN:Chayito Post-Op Subjective Date/time seen: 04/21/24 12:58 43-year-old 6 para [id number] female presented to the emergency room today with increasing pelvic pain discomfort and heavy bleeding. Is well known to have uterine fibroids and had discussed this in the past and multiple options for treatment. She deferred at that time and had done well until last month when she had a normal 3 day very heavy period, followed by spotting until she initiated this current period two days ago with again heavy clotting and cramping, severe pain yesterday with watery bloody discharge today. Also relates she did have a fever and felt poorly, no diarrhea constipation and some minimal urinary symptoms. Upon presentation the emergency room was found to be febrile as well as tachycardic, abdominal discomfort and tenderness midline and right lower quadrant and leukocytosis of 22,000. CT scan confirmed enlarged fibroid uterus, mild hydronephrosis, no other evidence of tubo-ovarian abscess or other pelvic/abdominal abnormality. Admitted and placed on antibiotics as well as pain medications as needed. Assessment: 1. Leukocytosis... With fever and tenderness likely endometritis/parametritis, also degenerating fibroid may be playing a role in her elevated white count as well. Also potential urinary tract infection, culture pending. Vaginal/cervical cultures also pending. 2. Fibroid uterus... See above, will order ultrasound for tomorrow to assess any interval change from her last exam approximately 6 months ago. Discussion again regarding treatment options for this which will occur after discharge and infection has resolved. 3. Menometrorrhagia... Not currently bleeding of significance, also has responded well to iron infusion therapy which she has been undergoing. Plan: 1. Continue IV antibiotics 2. Pelvic ultrasound 3. Long-range plan of hysterectomy, either robotic or open, will be discussed after discharge further in office. LAUNDRY ASSISTANT - PN: Obj Data Vital Signs Vital Signs: Vital Signs - 24 hr 04/20/24 22:54 04/21/24 01:46 04/21/24 02:02 Temperature 98.8 F 98.7 F 97.8 F Pulse Rate 104 H 106 H 86 Respiratory Rate 16 20 14 Blood Pressure 171/83 H 161/91 H 133/79 Pulse Oximetry 100 100 100 Oxygen Delivery Room Air 04/21/24 03:16 04/21/24 05:39 04/21/24 06:34 Temperature 97.8 F 98.1 F 98 F Pulse Rate 71 106 H 102 H Respiratory Rate 16 16 16 Blood Pressure 130/69 118/53 L 140/76 Pulse Oximetry 100 100 100 Oxygen Delivery 04/21/24 10:07 04/21/24 12:28 Temperature 101.5 F H 101.3 F H Pulse Rate 103 H Respiratory Rate 18 Blood Pressure 115/56 L Pulse Oximetry 100 Oxygen Delivery Intake/Output Intake/Output: Intake & Output 04/18/24 04/19/24 04/20/24 04/21/24 23:59 23:59 23:59 23:59 Intake Total 3150 Balance 3150 Meds/Results Medications: Active Medications Generic Name Dose Route Start Last Admin Trade Name Freq PRN Reason Stop Dose Admin Acetaminophen 650 mg 04/21/24 11:59 04/21/24 12:28 Acetaminophen 325 Mg Tablet PO 650 mg Q6H PRN Administration Mild Pain (1-3) or Fever Hydrocodone Bitart/Acetaminophen 1 tab 04/21/24 11:58 Hydrocodone/Acetaminophen (*Crx) 5-325 Mg Tablet PO Q6H PRN Pain Rated 4-6 Ceftriaxone Sodium 2 gm in 100 mls @ 200 mls/hr 04/21/24 17:00 Rocephin 2 Gm/Ns 100 Ml IVPB Q24H OTIS Doxycycline Hyclate 100 mg in 100 mls @ 100 mls/hr 04/21/24 12:00 04/21/24 12:28 Vibramycin 100 Mg/Ns 100 Ml IVPB 100 mls/hr Q12HR OTIS Administration Metronidazole 500 mg in 100 mls @ 100 mls/hr 04/21/24 14:00 Flagyl 500 Mg/Iso Soln 100 Ml IVPB Q8H [facility] Sodium Chloride 1,000 mls @ 100 mls/hr 04/21/24 12:00 04/21/24 12:27 Normal Saline Iv IV CONT 100 mls/hr .Q10H OTIS Administration Morphine Sulfate 2 mg 04/21/24 11:58 Morphine Sulfate (*Crx) 2 Mg/Ml Inj IV PUSH Q4H PRN Pain Rated 7-10 Radiology Results: ITS Impressions Abdomen/Pelvis CT 04/21/24 06:30 IMPRESSION: 1. Uterine fibroids. 2. Mild right hydronephrosis and hydroureter secondary to the enlarged uterus. Labs 04/21/24 02:20 04/21/24 02:20 Labs: Laboratory Results - last 24 hr 04/21/24 04/21/24 04/21/24 02:20 02:23 04:24 WBC 22.7 H RBC 4.09 L Hgb 10.2 L Hct 34.0 L MCV 83.1 MCH 24.9 L MCHC 30.0 L RDW 25.2 H Plt Count 263 MPV 10.5 H Immature Gran % (Auto) 0.6 H Neut % (Auto) 91.9 H Lymph % (Auto) 2.1 L [place] % (Auto) 5.2 Eos % (Auto) 0.0 Baso % (Auto) 0.2 Lymph # (Auto) 0.48 L [place] # (Auto) 1.2 H Eos # (Auto) 0.0 Baso # (Auto) 0.0 Abs Immat Gran (auto) 0.13 H Absolute Neuts (auto) 20.9 H Absolute Nucleated RBC 0.000 Nucleated RBC % 0.0 Platelet Estimate Adequate Hypochromasia 2+ Anisocytosis 1+ Tear Drop Cells 1+ Ovalocytes 1+ Stomatocytes 1+ Schistocytes Rare ESR 17 PT 14.8 H INR 1.1 APTT 31.9 Sodium 135 L Potassium 3.6 Chloride 108 H Carbon Dioxide 21 L Anion Gap 6 BUN 12 Creatinine 0.60 L Estim Creat Clear Calc 85 Estimated GFR > 60 Glucose 122 H Lactic Acid 1.2 Calcium 9.0 Total Bilirubin 1.2 AST 22 ALT 14 Alkaline Phosphatase 54 C-Reactive Protein 2.6 H Total Protein 7.0 Albumin 4.3 TSH (Reflex) 1.090 Urine Color Yellow Urine Appearance Clear Urine pH 8.5 Ur Specific [place] 1.024 Urine Protein 1+ H Urine Glucose (UA) Negative Urine Ketones Trace H Ur Blood (Man) 1+ H Urine Nitrate Negative Urine Bilirubin Negative Urine Urobilinogen 1.0 Leukocyte Esterase Rfl 2+ H Urine RBC 11-20 H Urine WBC 51-100 H Ur Squamous Epith Cells None seen Urine Bacteria Trace Urine Casts 0-2 POC Urine HCG, Qual Negative C. trachomatis (PCR) Not detected Influenza A (RT-PCR) Negative Influenza B (RT-PCR) Negative N. gonorrhoeae (PCR) Not detected RSV (RT-PCR) Negative SARS-CoV-2 RNA (RT-PCR) Negative T. vaginalis (PCR) Not detected
[2024-04-21] MEDS: HYDROcodone/acetaminophen (*CRX) 5-325 MG TABLET 1 TAB PO (16:46)
[2024-04-21] MEDS: cefTRIAXone 2 GM/NS 100 ML 2 GM/100 ML BAG IVPB (16:46)
[2024-04-22] MEDS: ACETAMINOPHEN 325 MG TABLET 650 MG PO (01:13)
[2024-04-22 04:58] VITALS: BP 108/71; PULSE 93; RESP 16; TEMP 36.3; O2SAT 100
[2024-04-22] MEDS: metroNIDAZOLE 500 MG/ISO 100ML 500 MG/100 ML BAG 100 MG IVPB ×3 (05:07→21:25)
[2024-04-22 07:24] LABS: Basophils Percent Auto 0.3 % (0.2-1.2); Eosinophils Percent Auto 0.2 % (0-4.4); Hematocrit 29.4 % (37.0-47.0); Hemoglobin 8.5 g/dL (12.0-15.0); Immature Granulocyte Absolute 0.12 K/mm3 (0.00-0.031); Lymphocytes Absolute Auto 0.68 K/mm3 (0.9-3.2); Lymphocytes Percent Auto 5.7 % (18.3-44.2); Mean Corpuscular HGB Conc 28.9 g/dl (32-36); Mean Corpuscular Hemoglobin 24.9 pg (26-34); Mean Corpuscular Volume 86.2 fl (80-100); Mean Platelet Volume 10.6 fl (7.4-10.4); Monocytes Absolute Auto 0.8 K/mm3 (0.1-0.6); Monocytes Percent Auto 6.4 % (2.6-8.5); Neutrophils Absolute Auto 10.3 K/mm3 (1.3-6.7); Neutrophils Percent Auto 86.4 % (45.5-73.1); Platelet Count Result 185 k/mm3 (150-375); Red Blood Count 3.41 M/mm3 (4.2-5.4); Red Cell Distribution Width 25.2 % (11.5-14.5); White Blood Count 11.9 K/mm3 (4.5-10.0)
[2024-04-22 07:31] LABS: Lactic Acid Reflex 0.6 mmol/L (0.7-2.0)
[2024-04-22 07:32] LABS: Alanine Aminotransferase 9 U/L (6-35); Albumin Level 3.1 g/dL (3.5-5.1); Alkaline Phosphatase 47 U/L (38-126); Anion Gap 5 mmol/L (4-12); Aspartate Amino Transferase 16 U/L (14-36); Bilirubin,Total 0.7 mg/dL (0.2-1.3); Blood Urea Nitrogen 7 mg/dL (7-17); Calcium 7.7 mg/dL (8.4-10.2); Carbon Dioxide 19 mmol/L (22-30); Chloride 113 mmol/L (98-107); Estimated CRCL calculation 101 ml/min; Estimated Glomerular Filt Rate > 60; Glucose 93 mg/dL (65-110); Potassium 3.4 mmol/L (3.4-5.0); Sodium 137 mmol/L (137-145)
[2024-04-22 07:41] VITALS: O2SAT 100
[2024-04-22 08:05] LABS: Anisocytosis 1+; Hypochromasia 1+; Ovalocytes 1+; Platelet Estimate Adequate (Adequate); Schistocytes None Seen; Tear Drop Cells 1+
[2024-04-22] MEDS: DOXYCYCLINE 100 MG/NS 100 ML 100 MG/100 ML BAG IVPB ×2 (08:22→20:08)
[2024-04-22 14:00] VITALS: BP 106/57; PULSE 83; RESP 16; TEMP 36.5; O2SAT 100
[2024-04-22] MEDS: IBUPROFEN 400 MG TABLET PO ×2 (14:55→20:10)
--- NOTE | 2024-04-22 15:06 | P.PNOB_ITS ---
CENTRAL STERILE SUPPLY TECHNICIAN - A/P Time Spent With Patient Time: Total time spent is greater than 50% in coordination of care (as documented) at patient's floor/unit and/or counseling patient: Time with patient: 15 - 25 minutes CENTRAL STERILE SUPPLY TECHNICIAN- PN:Chayito Post-Op Subjective Date/time seen: 04/22/24 15:06 S: Feels better today though she does still continue with right lower pelvic pressure and discomfort with movement. O: VSS afebrile abd: tender to palpation RLQ lab: noted A: 1. Leukocytosis... improving on current antibiotic regimen 2. Fibroid uterus... tender an area of fibroid in the right lower quadrant P: 1. Continue antibiotics as current 2. Will follow up after discharge in office, this was discussed with patient today, at which point will need to schedule her hysterectomy CENTRAL STERILE SUPPLY TECHNICIAN - PN: Obj Data Vital Signs Vital Signs: Vital Signs - 24 hr 04/21/24 20:00 04/21/24 20:06 04/22/24 04:58 Temperature 97.8 F 97.3 F L Pulse Rate 86 93 Respiratory Rate 16 16 Blood Pressure 100/50 L 108/71 Pulse Oximetry 100 100 Oxygen Delivery Room Air Fraction of Inspired Oxygen 04/22/24 07:41 04/22/24 08:20 Temperature Pulse Rate Respiratory Rate Blood Pressure Pulse Oximetry 100 Oxygen Delivery Room Air Room Air Fraction of Inspired Oxygen 21 Intake/Output Intake/Output: Intake & Output 04/19/24 04/20/24 04/21/24 04/22/24 23:59 23:59 23:59 23:59 Intake Total 5306.7 490 Balance 5306.7 490 Meds/Results Medications: Active Medications Generic Name Dose Route Start Last Admin Trade Name Freq PRN Reason Stop Dose Admin Acetaminophen 650 mg 04/21/24 11:59 04/22/24 01:13 Acetaminophen 325 Mg Tablet PO 650 mg Q6H PRN Administration Mild Pain (1-3) or Fever Hydrocodone Bitart/Acetaminophen 1 tab 04/21/24 11:58 04/21/24 16:46 Hydrocodone/Acetaminophen (*Crx) 5-325 Mg Tablet PO 1 tab Q6H PRN Administration Pain Rated 4-6 Ceftriaxone Sodium 2 gm in 100 mls @ 200 mls/hr 04/21/24 17:00 04/21/24 17:16 Rocephin 2 Gm/Ns 100 Ml IVPB Infused Q24H OTIS Infusion Doxycycline Hyclate 100 mg in 100 mls @ 100 mls/hr 04/21/24 12:00 04/22/24 09:22 Vibramycin 100 Mg/Ns 100 Ml IVPB Infused Q12HR [facility] Infusion Metronidazole 500 mg in 100 mls @ 100 mls/hr 04/21/24 14:00 04/22/24 14:54 Flagyl 500 Mg/Iso Soln 100 Ml IVPB 100 mls/hr Q8H OTIS Administration Sodium Chloride 1,000 mls @ 100 mls/hr 04/21/24 12:00 04/21/24 22:07 Normal Saline Iv IV CONT 100 mls/hr .Q10H OTIS Administration Ibuprofen 400 mg 04/22/24 14:00 04/22/24 14:55 Ibuprofen 400 Mg Tablet PO 400 mg Q6H OTIS Administration Morphine Sulfate 2 mg 04/21/24 11:58 Morphine Sulfate (*Crx) 2 Mg/Ml Inj IV PUSH Q4H PRN Pain Rated 7-10 Radiology Results: ITS Impressions Abdomen/Pelvis CT 04/21/24 06:30 IMPRESSION: 1. Uterine fibroids. 2. Mild right hydronephrosis and hydroureter secondary to the enlarged uterus. Pelvic/Transvag US 04/22/24 09:23 IMPRESSION: Multiple uterine fibroids. Otherwise, normal pelvic ultrasound. Labs 04/22/24 07:09 04/22/24 07:09 Labs: Laboratory Results - last 24 hr 04/22/24 07:09 WBC 11.9 H RBC 3.41 L Hgb 8.5 L Hct 29.4 L MCV 86.2 MCH 24.9 L MCHC 28.9 L RDW 25.2 H Plt Count 185 MPV 10.6 H Immature Gran % (Auto) 1.0 H Neut % (Auto) 86.4 H Lymph % (Auto) 5.7 L [place] % (Auto) 6.4 Eos % (Auto) 0.2 Baso % (Auto) 0.3 Lymph # (Auto) 0.68 L [place] # (Auto) 0.8 H Eos # (Auto) 0.0 Baso # (Auto) 0.0 Abs Immat Gran (auto) 0.12 H Absolute Neuts (auto) 10.3 H Absolute Nucleated RBC 0.000 Nucleated RBC % 0.0 Platelet Estimate Adequate Hypochromasia 1+ Anisocytosis 1+ Tear Drop Cells 1+ Ovalocytes 1+ Schistocytes None seen Sodium 137 Potassium 3.4 Chloride 113 H Carbon Dioxide 19 L Anion Gap 5 BUN 7 D Creatinine 0.50 L Estim Creat Clear Calc 101 Estimated GFR > 60 Glucose 93 Lactic Acid 0.6 L Calcium 7.7 L Magnesium 2.0 Total Bilirubin 0.7 AST 16 ALT 9 Alkaline Phosphatase 47 Total Protein 6.0 L Albumin 3.1 L
--- NOTE | 2024-04-22 15:34 | P.PNIM_ITS ---
Progress Note: A&P Assessment and Plan (1) PID (acute pelvic inflammatory disease): Code(s): N73.0 - Acute parametritis and pelvic cellulitis Status: Acute (2) Iron deficiency anemia: Qualifiers: Iron deficiency anemia type: chronic blood loss Qualified Code(s): D50.0 - Iron deficiency anemia secondary to blood loss (chronic) Code(s): D50.9 - Iron deficiency anemia, unspecified Status: Acute Plan Pelvic inflammatory disease Patient presented wit fever, lower abdominal pain and vaginal discharge Exam notable for suprapubic tenderness CT showed fibroid with hydronephrosis. Trichomonas, Gonorrhea and Chlamydia negative Urine culture Group A streptococcus Pelvic ultrasound fibroids CASHIER SELF SERVICE GASOLINE following Continue abx for now Monitor closely. Sepsis From PID vital signs stable and within normal limits Continue IV fluid and above care Monitor closely Fibroid with right hydronephrosis and hydroureter from mass effect. CASHIER SEL[employer] SERVICE GASOLINE evaluated and noted outpatient hysterectomy Chronic iron deficiency Patient on frequent infusion of patient, follows with Hematology. Continue outpatient follow-up. DVT prophylaxis subQ Lovenox. Patient is full code Surrogate decision maker is Basim Reardon Subjective Date/time seen: 04/22/24 15:34 Interval history: Comfortable at bedside and [employer] G[employer] eval noted Review of Systems Review of Systems: All other systems reviewed and negative except as noted in the history above. Exam Narrative: General: alert and comfortable Eyes: EOMI, PERRLA ENNT External ears normal, Neck is supple, no masses, Respiratory systems: Clear to auscultation Cardiovascular S1, S2, normal rhythm, no murmur, rub, or gallop; no thrill or palpable murmurs on palpation. Gastrointestinal: Suprapubic tenderness.; BS present Skin: no rash, lesions, ulcerations, subcutaneous nodules or induration Musculoskeletal: no abnormality and no tenderness, normal ROM Neurologic: Alert and oriented x3, non focal exam: Deferred Objective Data Vital Signs Vital Signs: Vital Signs - 24 hr 04/21/24 20:00 04/21/24 20:06 04/22/24 04:58 Temperature 97.8 F 97.3 F L Pulse Rate 86 93 Respiratory Rate 16 16 Blood Pressure 100/50 L 108/71 Pulse Oximetry 100 100 Oxygen Delivery Room Air Fraction of Inspired Oxygen 04/22/24 07:41 04/22/24 08:20 04/22/24 14:00 Temperature 97.7 F Pulse Rate 83 Respiratory Rate 16 Blood Pressure 106/57 L Pulse Oximetry 100 100 Oxygen Delivery Room Air Room Air Fraction of Inspired Oxygen 21 Intake/Output Intake/Output: Intake & Output 04/19/24 04/20/24 04/21/24 04/22/24 23:59 23:59 23:59 23:59 Intake Total 5306.7 730 Balance 5306.7 730 Meds/Results Medications: Active Medications Generic Name Dose Route Start Last Admin Trade Name Freq PRN Reason Stop Dose Admin Acetaminophen 650 mg 04/21/24 11:59 04/22/24 01:13 Acetaminophen 325 Mg Tablet PO 650 mg Q6H PRN Administration Mild Pain (1-3) or Fever Hydrocodone Bitart/Acetaminophen 1 tab 04/21/24 11:58 04/21/24 16:46 Hydrocodone/Acetaminophen (*Crx) 5-325 Mg Tablet PO 1 tab Q6H PRN Administration Pain Rated 4-6 Ceftriaxone Sodium 2 gm in 100 mls @ 200 mls/hr 04/21/24 17:00 04/21/24 17:16 Rocephin 2 Gm/Ns 100 Ml IVPB Infused Q24H [facility] Infusion Doxycycline Hyclate 100 mg in 100 mls @ 100 mls/hr 04/21/24 12:00 04/22/24 09:22 Vibramycin 100 Mg/Ns 100 Ml IVPB Infused Q12HR [facility] Infusion Metronidazole 500 mg in 100 mls @ 100 mls/hr 04/21/24 14:00 04/22/24 14:54 Flagyl 500 Mg/Iso Soln 100 Ml IVPB 100 mls/hr Q8H OTIS Administration Sodium Chloride 1,000 mls @ 100 mls/hr 04/21/24 12:00 04/21/24 22:07 Normal Saline Iv IV CONT 100 mls/hr .Q10H OTIS Administration Ibuprofen 400 mg 04/22/24 14:00 04/22/24 14:55 Ibuprofen 400 Mg Tablet PO 400 mg Q6H OTIS Administration Morphine Sulfate 2 mg 04/21/24 11:58 Morphine Sulfate (*Crx) 2 Mg/Ml Inj IV PUSH Q4H PRN Pain Rated 7-10 Radiology Results: ITS Impressions Abdomen/Pelvis CT 04/21/24 06:30 IMPRESSION: 1. Uterine fibroids. 2. Mild right hydronephrosis and hydroureter secondary to the enlarged uterus. Pelvic/Transvag US 04/22/24 09:23 IMPRESSION: Multiple uterine fibroids. Otherwise, normal pelvic ultrasound. Labs Labs: Laboratory Results - last 24 hr 04/22/24 07:09 WBC 11.9 H RBC 3.41 L Hgb 8.5 L Hct 29.4 L MCV 86.2 MCH 24.9 L MCHC 28.9 L RDW 25.2 H Plt Count 185 MPV 10.6 H Immature Gran % (Auto) 1.0 H Neut % (Auto) 86.4 H Lymph % (Auto) 5.7 L [place] % (Auto) 6.4 Eos % (Auto) 0.2 Baso % (Auto) 0.3 Lymph # (Auto) 0.68 L [place] # (Auto) 0.8 H Eos # (Auto) 0.0 Baso # (Auto) 0.0 Abs Immat Gran (auto) 0.12 H Absolute Neuts (auto) 10.3 H Absolute Nucleated RBC 0.000 Nucleated RBC % 0.0 Platelet Estimate Adequate Hypochromasia 1+ Anisocytosis 1+ Tear Drop Cells 1+ Ovalocytes 1+ Schistocytes None seen Sodium 137 Potassium 3.4 Chloride 113 H Carbon Dioxide 19 L Anion Gap 5 BUN 7 D Creatinine 0.50 L Estim Creat Clear Calc 101 Estimated GFR > 60 Glucose 93 Lactic Acid 0.6 L Calcium 7.7 L Magnesium 2.0 Total Bilirubin 0.7 AST 16 ALT 9 Alkaline Phosphatase 47 Total Protein 6.0 L Albumin 3.1 L
[2024-04-22] MEDS: SODIUM CHLORIDE 0.9% IV 1,000 ML 100 ML IV CONT (17:24)
[2024-04-22] MEDS: cefTRIAXone 2 GM/NS 100 ML 2 GM/100 ML BAG IVPB (17:24)
[2024-04-22 20:15] VITALS: BP 98/56; PULSE 77; RESP 16; TEMP 36.4; O2SAT 100
[2024-04-23] MEDS: IBUPROFEN 400 MG TABLET PO (01:31)
[2024-04-23] MEDS: SODIUM CHLORIDE 0.9% IV 1,000 ML 100 ML IV CONT (05:19)
[2024-04-23] MEDS: metroNIDAZOLE 500 MG/ISO 100ML 500 MG/100 ML BAG 100 MG IVPB (05:19)
[2024-04-23 05:23] VITALS: BP 112/64; PULSE 77; RESP 16; TEMP 36.1; O2SAT 100
[2024-04-23 06:22] LABS: Basophils Percent Auto 0.3 % (0.2-1.2); Eosinophils Absolute Auto 0.1 K/mm3 (0-0.3); Hematocrit 26.6 % (37.0-47.0); Immature Granulocyte Absolute 0.04 K/mm3 (0.00-0.031); Immature Granulocyte Percent A 0.7 % (0-0.5); Lymphocytes Absolute Auto 0.86 K/mm3 (0.9-3.2); Lymphocytes Percent Auto 14.1 % (18.3-44.2); Mean Corpuscular HGB Conc 30.1 g/dl (32-36); Mean Corpuscular Hemoglobin 25.5 pg (26-34); Mean Corpuscular Volume 84.7 fl (80-100); Mean Platelet Volume 11.5 fl (7.4-10.4); Monocytes Absolute Auto 0.5 K/mm3 (0.1-0.6); Neutrophils Absolute Auto 4.6 K/mm3 (1.3-6.7); Neutrophils Percent Auto 74.9 % (45.5-73.1); Platelet Count Result 182 k/mm3 (150-375); Red Blood Count 3.14 M/mm3 (4.2-5.4); White Blood Count 6.1 K/mm3 (4.5-10.0)
[2024-04-23 06:32] LABS: Alanine Aminotransferase 9 U/L (6-35); Albumin Level 2.9 g/dL (3.5-5.1); Alkaline Phosphatase 49 U/L (38-126); Anion Gap 2 mmol/L (4-12); Aspartate Amino Transferase 14 U/L (14-36); Bilirubin,Total 0.3 mg/dL (0.2-1.3); Blood Urea Nitrogen 7 mg/dL (7-17); Calcium 7.7 mg/dL (8.4-10.2); Carbon Dioxide 22 mmol/L (22-30); Chloride 115 mmol/L (98-107); Estimated CRCL calculation 101 ml/min; Estimated Glomerular Filt Rate > 60; Glucose 92 mg/dL (65-110); Magnesium 2.1 mg/dL (1.6-2.3); Potassium 3.1 mmol/L (3.4-5.0); Sodium 139 mmol/L (137-145)
[2024-04-23 07:13] LABS: Hypochromasia 1+; Platelet Estimate Adequate (Adequate)
[2024-04-23 07:14] LABS: Anisocytosis 2+; Helmet Cells 1+; Ovalocytes 1+; Schistocytes None Seen; Target Cells 1+; Tear Drop Cells 1+
[2024-04-23] MEDS: DOXYCYCLINE 100 MG/NS 100 ML 100 MG/100 ML BAG IVPB (09:21)
--- NOTE | 2024-04-23 13:51 | P.DS_ITS ---
DS: Admitting Diagnosis Discharge Date 04/23/24 Admitting Diagnosis fever and vaginal discharge DS: Discharge Diagnosis Discharge Diagnosis (1) PID (acute pelvic inflammatory disease): Code(s): N73.0 - Acute parametritis and pelvic cellulitis Status: Acute (2) Vaginal discharge: Code(s): N89.8 - Other specified noninflammatory disorders of vagina Status: Acute DS: Summary Hospital Course Hospital Course: 43 yo female with chronic anemia on frequent iron infusion who presented to the ER on account of lower abd pain, fever and vaginal discharge. Patient noted she was in her usual state of health until 2 days ago she started having regular cycle yesterday change to watery discharge with no abdominal pain and fever. Noted no prior episodes. Denies any vomiting chest shortness on dysuria no focal symptoms. ER evaluation notable for temperature of 5 rate 3, respiratory 18, blood pressure 115/56, saturation 97% on room air. Labs notable for WBC 22.7, hemoglobin 2, creatinine UA positive leukocyte Estrace with pyuria microscopic hematuria. CT abdomen showed a uterine fibroids with my right hydronephrosis and hydroureter secondary to enlarged uterus. Enrobing Machine Corder consulted from the ER prior to admission. She was on Rocephin, doxycycline Flagyl prior to admission. Gonorrhea, Chlamydia and T vaginalis negative. Urine culture positive for Group A streptococcus. Patient discharged on 10 days of Amoxicillin. PID ruled out. appears to have been UTI. and pain is from uterine fibroids. Will Follow up with MALWARE ANALYST for hysterectomy. Assessment and Plan Pelvic inflammatory disease ruled out Patient presented wit fever, lower abdominal pain and vaginal discharge Exam notable for suprapubic tenderness CT showed fibroid with hydronephrosis. Trichomonas, Gonorrhea and Chlamydia negative Urine culture Group A streptococcus Pelvic ultrasound fibroids Patient likely has UTi and with abd pain excerbated by fibroids Discharged on 10 more days of Amoxicillin and F/u with MALWARE ANALYST for outpatient hysterectomy Sepsis From UTI s/p IVF continue above care plan Fibroid with right hydronephrosis and hydroureter from mass effect. MALWARE ANALYST evaluated and noted outpatient hysterectomy Chronic iron deficiency Patient on frequent infusion of patient, follows with Hematology. Continue outpatient follow-up. F/u with PCP in 3-5 days F/u with technician chemical cleaning as instructed Time Spent with Patient Time attestation: Total time spent providing and/or coordinating discharge services: DS: Data Data Completed and Pending Labs on day of discharge: Labs from last 24 hours 04/23/24 05:22 WBC 6.1 RBC 3.14 L Hgb 8.0 L Hct 26.6 L MCV 84.7 MCH 25.5 L MCHC 30.1 L RDW 25.0 H Plt Count 182 MPV 11.5 H Immature Gran % (Auto) 0.7 H Neut % (Auto) 74.9 H Lymph % (Auto) 14.1 L Castro % (Auto) 8.0 Eos % (Auto) 2.0 Baso % (Auto) 0.3 Lymph # (Auto) 0.86 L Castro # (Auto) 0.5 Eos # (Auto) 0.1 Baso # (Auto) 0.0 Abs Immat Gran (auto) 0.04 H Absolute Neuts (auto) 4.6 Absolute Nucleated RBC 0.000 Nucleated RBC % 0.0 Platelet Estimate Adequate Hypochromasia 1+ Anisocytosis 2+ Target Cells 1+ Tear Drop Cells 1+ Ovalocytes 1+ Helmet Cells 1+ Schistocytes None seen Sodium 139 Potassium 3.1 L Chloride 115 H Carbon Dioxide 22 Anion Gap 2 L BUN 7 Creatinine 0.50 L Estim Creat Clear Calc 101 Estimated GFR > 60 Glucose 92 Calcium 7.7 L Magnesium 2.1 Total Bilirubin 0.3 AST 14 ALT 9 Alkaline Phosphatase 49 Total Protein 6.0 L Albumin 2.9 L Preliminary micro results at discharge 04/21/24 04:24 Blood Culture - Preliminary Blood 04/21/24 03:45 Blood Culture - Preliminary Blood Discharge Plan Discharge Attending physician on discharge: Aguila Lara Consulting providers: Liborio Messina Discharging Clinician: Aguila Lara Anticipated Discharge Date/Time: 04/23/24 13:18 Patient Disposition: Home, Self-Care Activity: as tolerated Diet: as tolerated Patient Instructions: Antibiotic Form Patient Language: Sudanese Stand Alone Forms: General Discharge Information Follow-up/Referrals: Delanye Garcia APRN [Primary Care Provider] - (F/u with PCP in 3-5 days) Liborio Messina MD [Physician] - (F/u with MALWARE ANALYST as instructed ) Discharge Medications: New hydrocodone-acetaminophen 5-325 mg Tablet 1 tablet PO Q6H PRN (Reason: Pain Rated 4-6) 7 Days Qty: 10 0RF amoxicillin 500 mg tablet 500 mg PO Q12H 10 Days Qty: 20 0RF Continued ferrous sulfate 325 mg (65 mg iron) tablet 325 mg PO .Q48HR mecobalamin (vitamin B12) 1,000 mcg tablet,chewable 1,000 mcg PO DAILY Qty: 90 1RF cholecalciferol (vitamin D3) 25 mcg (1,000 unit) tablet 25 mcg PO DAILY Qty: 90 1RF Discontinued azithromycin [Zithromax Z-Jeremiah] 250 mg tablet See Rx Instructions PO .COMPLEX Qty: 6 0RF Patient Comments: . Rx Instructions: For 250 mg dose pack: take 500 mg today (day 1), then 250 mg for 4 days (days 2-5) PO Date of admission: 04/21/24 07:53 Primary Care Provider: Delaney Garcia Admitting Provider: Aguila Lara Attending physician on admission: Aguila Lara Condition: Stable
[2024-04-23 14:00] VITALS: BP 117/70; PULSE 77; RESP 16; TEMP 36.1; O2SAT 100
== END 2024-04-23 15:10 | disposition home or self-care (01) ==
LOC: ANHED 04-21 02:00 → ANH3MED 04-21 08:11
PROVIDERS: Admitting Provider Internal Medicine; Emergency Provider Physician Assistant; PCP Nurse Practitioner Family; Visit Provider Internal Medicine
DX: A41.9 Sepsis, unspecified organism (principal); N39.0 Urinary tract infection, site not specified; R31.29 Other microscopic hematuria; D25.9 Leiomyoma of uterus, unspecified; N13.30 Unspecified hydronephrosis; N13.4 Hydroureter; N89.8 Other specified noninflammatory disorders of vagina; N92.1 Excessive and frequent menstruation with irregular cycle; D50.0 Iron deficiency anemia secondary to blood loss (chronic); Z86.16 Personal history of COVID-19; Z98.51 Tubal ligation status; Z79.899 Other long term (current) drug therapy
CPT/HCPCS: 36415; 74177; 76830; 76856; 80053; 81001; 81025; 83605; 83735; 84443; 85025; 85610; 85652; 85730; 86140; 87040; 87086; 87491; 87591; 87637; 87661; 96361; 96365; 96366; 96367; 96375; 99285; A9270; G0378; G0379; J0696; J1836; J1885; J2405; J7030; Q9967

== ENCOUNTER 2024-07-03 12:13 | Emergency (ER) | payer OTHER, SELFPAY ==
[2024-07-03 12:30] VITALS: BP 151/77; PULSE 74; RESP 16; TEMP 36.2; O2SAT 99
--- NOTE | 2024-07-03 12:35 | ED.FEMALEGU ---
HPI - Female Genitourinary General Chief complaint: Urogenital-Female Stated complaint: left lower back pain, fullness of bladder Time Seen by Provider: 07/03/24 12:36 Source: patient, RN notes reviewed and old records reviewed Mode of arrival: ambulatory Limitations: no limitations History of Present Illness HPI Narrative: 43-year-old female presents to the [facility] back discomfort and a feeling of fullness in her bladder. Has a history of fibroids. Patient is concerned that she might have a UTI. States that she hospitalized for UTI in March. States she just wants to make sure. Denies fevers. Denies abdominal pain. No CVA tenderness. Denies nausea or vomiting Onset (ago): day(s) (1) Related Data Home Medications ?Medication ?Instructions ?Recorded ?Confirmed ?Last Taken ?Type ferrous sulfate 325 mg (65 mg 325 mg PO .Q48HR 04/21/24 06/29/24 Unknown History iron) tablet Allergies Allergy/AdvReac Type Severity Reaction Status Date / Time No Known Allergies Allergy Verified 07/03/24 12:17 Review of Systems Review of Systems: All systems reviewed & are unremarkable except as noted in HPI and below Constitutional: Constitutional: Reports no additional constitutional complaints ENT: Reports system reviewed and no additional complaints, except as documented Cardiovascular: Cardiovascular: Reports no additional cardiovascular complaints, Denies chest pain and Denies dyspnea Respiratory: Respiratory: Reports no additional respiratory complaints, Denies chest congestion, Denies cough and Denies dyspnea Genitourinary: Genitourinary: Reports as per HPI Musculoskeletal: Musculoskeletal: Reports no additional musculoskeletal complaints Integumentary/Breasts: Skin/Breast: Reports system reviewed and no additional complaints, except as docu PMFSH Past Medical History Medical History BMI 27.0-27.9,adult Family history of early CAD Preop cardiovascular exam COVID-19 02/2020 Scarlet fever Palpitations Dizziness Heartburn Mother currently breast-feeding delivery delivered Surgical History Surgical History H/O tubal ligation (05/19/19) Previous section (05/19/19) primary c/s Breech presentation Family History Family History Father Family history of cardiovascular disease Hypertension Diabetes mellitus Mother Hypertension Disorder of thyroid Grandparent Diabetes mellitus Social History Social History Smoking status: Never smoker Second hand tobacco smoke exposure: No Alcohol intake: never Substance use: never Substance use type: does not use Do You Feel Safe in your Home?: Yes Lack of Transportation: No Lack of Food: Never True Current Housing: I Have Housing Concerned About Future Housing: No Difficulty Paying Gas/Electric Bills: No Difficulty Paying for Meds: No Currently Unemployed: No Education: High School Diploma/GED Difficulty w/ Childcare or Family Care: No Living arrangements: with family Additional living arrangements comments: Occupation/Education: other Additional occupation/education comments: stay at home mom Gender identity (if verbalized by the patient): Female Sexual Orientation (if Verbalized by the Patient): Straight or Heterosexual Spiritual care concerns: No Agree to blood products: Yes Comments At the time of my signature, I reviewed and agree with the nursing past medical, surgical, social, and family history. There is no relevant family history pertinent to the patient complaint. Exam Const: General: cooperative, healthy appearing, comfortable, no acute distress, well developed, alert and well nourished Nutritional Appearance: well nourished Orientation/consciousness: patient oriented x3 Limitations: no limitations HENMT: Head: normal to inspection Eyes: General: appearance normal, both eyes and all related structures Alignment and Position: alignment normal Neck: Neck: normal visual inspection, full ROM, no lymphadenopathy and no meningeal signs Chest: Chest palpation & inspection: normal inspection of the chest Resp: Effort & Inspection: normal respiratory effort and able to speak in complete sentences Auscultation: clear to auscultation bilaterally Cardio: Rate: regular rate GI: GI Palp: No abdominal tenderness : General: Yes no CVA tenderness Skin: General skin exam: normal color and no rashes or lesions noted Neuro: General: patient oriented x3, gait normal, moves all extremities and no meningeal signs Cognition (Neuro): normal cognition Speech: normal speech Gait exam (Neuro): Normal gait present Extrem: General: normal to inspection, full ROM, capillary refill normal and normal gait Psych: Appearance: grossly normal and well kempt Mental Status: mental status grossly normal Speech and movement: Normal speech and movement present and Clear speech present Affect: normal affect Attitude: cooperative Course Course Level of Care: Express Care Visit Vital Signs Vital signs: Vital Signs Temperature 97.1 F L 07/03/24 12:30 Pulse Rate 74 07/03/24 12:30 Respiratory Rate 16 07/03/24 12:30 Blood Pressure 151/77 H 07/03/24 12:30 Pulse Oximetry 99 07/03/24 12:30 Oxygen Delivery Room Air 07/03/24 12:30 Temperature 97.1 F L 07/03/24 12:30 Pulse Rate 74 07/03/24 12:30 Respiratory Rate 16 07/03/24 12:30 Blood Pressure 151/77 H 07/03/24 12:30 Pulse Oximetry 99 07/03/24 12:30 Oxygen Delivery Room Air 07/03/24 12:30 Reviewed MDM - Female Genitourinary MDM Narrative Medical decision making narrative: Patient sitting in exam room. Nontoxic, vitals stable except blood pressure mildly elevated. Patient presents wanting to be tested for UTI. Urine does note show signs of a UTI. Will culture. Patient is appropriate for outpatient treatment and follow-up. Discussed the importance of following up with fruit harvester machine operator for evaluation of fibroids. Discharge instructions reviewed with patient, as well as provided in writing per nursing staff. The instructions also include specific and strict return/GO TO THE ER as well as f/u information. All questions have been answered, and the patient deny any further questions with discharge and discharge plan. Some parts of this dictation were generated by voice recognition software and may contain typographical and/or grammatical inaccuracies. Differential Diagnosis Differential diagnosis: Likely urinary tract infection, cystitis and other (dysuria, uterine fibroid) Lab Data Labs: Lab Results 07/03/24 Range/Units 12:35 POC Urine Color Tea colored POC Urine Clarity Clear POC Urine pH 6.0 POC Ur Specif [place] 1.030 POC Urine Protein Negative (Negative) POC Ur Glucose (UA) Negative (Negative) POC Urine Ketones Negative (Negative) POC Urine Blood Negative (Negative) POC Urine Nitrite Negative (Negative) POC Urine Bilirubin Negative (Negative) POC Urine Urobilinogen 0.2 POC U Leukocyte Esteras Negative (Negative) Reviewed Critical Care Time Critical Care Time Critical Care Time: No Discharge Plan Discharge Clinical Impression: Dysuria, History of uterine fibroid Patient Disposition: Home, Self-Care Condition: Stable Instructions: Antibiotic Form, Uterine Fibroids (ED), Dysuria (ED) Additional Instructions: Call Dr. Messina and get a follow-up appointment Today your urine did not show signs of infection. We will send for culture Follow-up with primary care provider. Today your blood pressure is 151/77. We recommend following up with primary care provider to have this rechecked within 2 weeks For new or worsening symptoms go directly to the emergency Patient Language: Sami Prescriptions: No Action ferrous sulfate 325 mg (65 mg iron) tablet 325 mg PO .Q48HR mecobalamin (vitamin B12) 1,000 mcg tablet,chewable 1,000 mcg PO DAILY Qty: 90 1RF cholecalciferol (vitamin D3) 25 mcg (1,000 unit) tablet 25 mcg PO DAILY Qty: 90 1RF Follow-up/Referrals: Delaney Garcia APRN [Primary Care Provider] - Liborio Messina MD [Physician] - Stand Alone Forms: Work/School Release IP Time of Disposition: 12:47
[2024-07-03 12:37] LABS: EDUAAPPEAR Clear; EDUABILI Negative (Negative); EDUABLOOD Negative (Negative); EDUACOLOR1 Tea Colored; EDUAGLUCOSE Negative (Negative); EDUAKETONE Negative (Negative); EDUALEUKO Negative (Negative); EDUANITRATE Negative (Negative); EDUAPROTEIN Negative (Negative); EDUAUROBILI 0.2
== END 2024-07-03 12:50 | disposition home or self-care (01) ==
PROVIDERS: Emergency Provider Nurse Practitioner; PCP Nurse Practitioner Family
DX: R30.0 Dysuria (principal)
CPT/HCPCS: 81003; 87086; 99213; G0463

== ENCOUNTER 2024-10-10 14:47 | Emergency (ER) | payer OTHER, SELFPAY ==
--- NOTE | 2024-10-10 14:56 | ED.FEMALEGU ---
HPI - Female Genitourinary General Chief complaint: Urogenital-Female Stated complaint: urinary irritation Time Seen by Provider: 10/10/24 15:06 Source: patient, RN notes reviewed and old records reviewed Mode of arrival: ambulatory Limitations: no limitations History of Present Illness HPI Narrative: 44-year-old female presents to the [facility] with complaints of low back discomfort, frequency and urgency since Friday. Denies any burning. Denies fevers. Related Data Home Medications ?Medication ?Instructions ?Recorded ?Confirmed ?Last Taken ?Type ferrous sulfate 325 mg (65 mg 325 mg PO .Q48HR 04/21/24 06/29/24 Unknown History iron) tablet Allergies Allergy/AdvReac Type Severity Reaction Status Date / Time No Known Allergies Allergy Verified 10/10/24 14:59 Review of Systems Review of Systems: All systems reviewed & are unremarkable except as noted in HPI and below Constitutional: Constitutional: Reports no additional constitutional complaints ENT: Reports system reviewed and no additional complaints, except as documented Cardiovascular: Cardiovascular: Reports no additional cardiovascular complaints, Denies chest pain and Denies dyspnea Respiratory: Respiratory: Reports no additional respiratory complaints, Denies chest congestion, Denies cough and Denies dyspnea Genitourinary: Genitourinary: Reports as per HPI Musculoskeletal: Musculoskeletal: Reports no additional musculoskeletal complaints Integumentary/Breasts: Skin/Breast: Reports system reviewed and no additional complaints, except as docu PMFSH Past Medical History Medical History BMI 27.0-27.9,adult Family history of early CAD Preop cardiovascular exam COVID-19 02/2020 Scarlet fever Palpitations Dizziness Heartburn Mother currently breast-feeding delivery delivered Surgical History Surgical History H/O tubal ligation (05/19/19) Previous section (05/19/19) primary c/s Breech presentation Family History Family History Father Family history of cardiovascular disease Hypertension Diabetes mellitus Mother Hypertension Disorder of thyroid Grandparent Diabetes mellitus Social History Social History Smoking status: Never smoker Second hand tobacco smoke exposure: No Alcohol intake: never Substance use: never Substance use type: does not use Do You Feel Safe in your Home?: Yes Lack of Transportation: No Lack of Food: Never True Current Housing: I Have Housing Concerned About Future Housing: No Difficulty Paying Gas/Electric Bills: No Difficulty Paying for Meds: No Currently Unemployed: No Education: High School Diploma/GED Difficulty w/ Childcare or Family Care: No Living arrangements: with family Additional living arrangements comments: Occupation/Education: other Additional occupation/education comments: stay at home mom Gender identity (if verbalized by the patient): Female Sexual Orientation (if Verbalized by the Patient): Straight or Heterosexual Spiritual care concerns: No Agree to blood products: Yes Comments At the time of my signature, I reviewed and agree with the nursing past medical, surgical, social, and family history. There is no relevant family history pertinent to the patient complaint. Exam Const: General: cooperative, healthy appearing, comfortable, no acute distress, well developed, alert and well nourished Nutritional Appearance: well nourished Orientation/consciousness: patient oriented x3 Limitations: no limitations HENMT: Head: normal to inspection Eyes: General: appearance normal, both eyes and all related structures Alignment and Position: alignment normal Neck: Neck: normal visual inspection, full ROM, no lymphadenopathy and no meningeal signs Chest: Chest palpation & inspection: normal inspection of the chest Resp: Effort & Inspection: normal respiratory effort and able to speak in complete sentences Cardio: Rate: regular rate GI: GI Palp: No abdominal tenderness : General: Yes no CVA tenderness Skin: General skin exam: normal color and no rashes or lesions noted Neuro: General: patient oriented x3, gait normal, moves all extremities and no meningeal signs Cognition (Neuro): normal cognition Speech: normal speech Gait exam (Neuro): Normal gait present Extrem: General: normal to inspection, full ROM, capillary refill normal and normal gait Psych: Appearance: grossly normal and well kempt Mental Status: mental status grossly normal Speech and movement: Normal speech and movement present and Clear speech present Affect: normal affect Attitude: cooperative Course Course Level of Care: Express Care Visit Vital Signs Vital signs: Vital Signs Temperature 98.4 F 10/10/24 15:00 Pulse Rate 71 10/10/24 15:00 Respiratory Rate 16 10/10/24 15:00 Blood Pressure 123/73 10/10/24 15:00 Pulse Oximetry 100 10/10/24 15:00 Oxygen Delivery Room Air 10/10/24 15:00 Temperature 98.4 F 10/10/24 15:00 Pulse Rate 71 10/10/24 15:00 Respiratory Rate 16 10/10/24 15:00 Blood Pressure 123/73 10/10/24 15:00 Pulse Oximetry 100 10/10/24 15:00 Oxygen Delivery Room Air 10/10/24 15:00 Reviewed MDM - Female Genitourinary MDM Narrative Medical decision making narrative: Patient sitting in exam room. Patient is nontoxic, vitals are stable. Patient presents with concerns for UTI. No leukocytes or nitrites noted in urine. Will send for culture Patient appropriate for outpatient treatment with close follow-up Discharge instructions reviewed with patient, as well as provided in writing per nursing staff. The instructions also include specific and strict return/GO TO THE ER as well as f/u information. All questions have been answered, and the patient deny any further questions with discharge and discharge plan. Some parts of this dictation were generated by voice recognition software and may contain typographical and/or grammatical inaccuracies. Differential Diagnosis Differential diagnosis: Likely urinary tract infection and cystitis Lab Data Labs: Lab Results 10/10/24 Range/Units 15:08 POC Urine Color Yellow POC Urine Clarity Clear POC Urine pH 6.0 POC Ur Specif [place] 1.030 POC Urine Protein Negative (Negative) POC Ur Glucose (UA) Negative (Negative) POC Urine Ketones Negative (Negative) POC Urine Blood Trace (Negative) POC Urine Nitrite Negative (Negative) POC Urine Bilirubin Negative (Negative) POC Urine Urobilinogen 0.2 POC U Leukocyte Esteras Negative (Negative) Reviewed Critical Care Time Critical Care Time Critical Care Time: No Discharge Plan Discharge Clinical Impression: Urinary frequency Patient Disposition: Home Condition: Stable Instructions: Antibiotic Form, Urinary Urgency and Frequency (DC) Additional Instructions: Today your urine did not show signs of infection. We will send a tore lap for confirmation, if at that time bacteria grows out we will call you and call in an antibiotic. Follow-up with primary care provider Follow-up with legal records manager For worsening symptoms go directly to the emergency room Patient Language: Bahraini Prescriptions: No Action ferrous sulfate 325 mg (65 mg iron) tablet 325 mg PO .Q48HR mecobalamin (vitamin B12) 1,000 mcg tablet,chewable 1,000 mcg PO DAILY Qty: 90 1RF cholecalciferol (vitamin D3) 25 mcg (1,000 unit) tablet 25 mcg PO DAILY Qty: 90 1RF Follow-up/Referrals: Delaney Garcia APRN [Primary Care Provider] - 1 Week Time of Disposition: 15:17
[2024-10-10 15:00] VITALS: BP 123/73; PULSE 71; RESP 16; TEMP 36.9; O2SAT 100
[2024-10-10 15:11] LABS: EDUAAPPEAR Clear; EDUABILI Negative (Negative); EDUABLOOD Trace (Negative); EDUACOLOR1 Yellow; EDUAGLUCOSE Negative (Negative); EDUAKETONE Negative (Negative); EDUALEUKO Negative (Negative); EDUANITRATE Negative (Negative); EDUAPROTEIN Negative (Negative); EDUAUROBILI 0.2
== END 2024-10-10 15:20 | disposition home or self-care (01) ==
PROVIDERS: Emergency Provider Nurse Practitioner; PCP Nurse Practitioner Family
DX: R35.0 Frequency of micturition (principal); R12 Heartburn; Z86.16 Personal history of COVID-19; Z82.49 Family history of ischemic heart disease and other diseases of the circulatory system
CPT/HCPCS: 81003; 87086; 99213; G0463